=== PATIENT | male | born 1970 | race Caucasian/White ===

== ENCOUNTER 2020-11-15 14:45 | Outpatient (CLI) | payer OTHER, SELFPAY | END 2020-11-15 14:46 | disposition home or self-care (01) | LOC: ANHCOVIDVC 14:45 | PROVIDERS: PCP Internal Medicine | DX: Z23 Encounter for immunization (principal) | CPT/HCPCS: 0001A; 91300 ==

== ENCOUNTER 2020-12-06 14:44 | Outpatient (CLI) | payer OTHER, SELFPAY | END 2020-12-06 14:45 | disposition home or self-care (01) | LOC: ANHCOVIDVC 14:44 | PROVIDERS: PCP Internal Medicine | DX: Z23 Encounter for immunization (principal) | CPT/HCPCS: 0002A; 91300 ==

== ENCOUNTER 2021-04-03 10:39 | Outpatient (CLI) | payer OTHER, MEDICARE, SELFPAY ==
--- NOTE | ~2021-04-03 | CT_ITS ---
EXAMINATION: CT lumbar spine wo [facility] EXAM DATE: 04/03/2021 11:19 INDICATION: M54.16 - Radiculopathy, lumbar region . TECHNIQUE: Spiral CT of the lumbar spine was performed without contrast. Axial, coronal and sagittal images lumbar spine were reviewed. The dose-length product (DLP) for this examination was 1302.71 m Gy-cm. The exposure was tailored according to patient size (auto mA exposure control), and iterativ e reconstruction (ASIR) was used as additional dose reduction technique. Comparison is made to prior examination from 07/06/2018. FINDINGS: There is 3 mm retrolisthesis L3 on L4, L4 on L5 and L5 on S1. Mild to moderate disc disease at L4-5, mild at the other lumbar levels. Congenitally narrow mid lumbar spinal canal. There are no acute fractures identified. Sacrum, sacroiliac joints, sacral arcuate lines are intact. Paraspinal so ft tissue is unremarkable. Level by level evaluation: T11-12: Disc does not extend beyond the endplate margin. Facet arthropathy: Mild. Neural foraminal stenosis: No stenosis. Central canal stenosis: No stenosis. T12-L1: Disc does not extend beyond the endplate margin. Facet arthropathy: None. Neural foraminal stenosis: No stenosis. Central canal stenosis: No stenosis. L1-L2: There is a minimal diffuse disc bulge. Facet arthropathy: None. Neural foraminal stenosis: No stenosis. Central canal stenosis: No stenosis. L2-L3: There is a mild diffuse disc bulge. Facet arthropathy: Mild. Neural foraminal stenosis: Mild right. Central canal stenosis: Mild superimposed on congenital. L3-L4: There is a mild to moderate diffuse disc bulge. Facet arthropathy: Mild to moderate. Neural foraminal stenosis: Mild to moderate bilateral. Central canal stenosis: Moderate to severe superimposed on congenital. L4-L5: There is a mild to moderate diffuse disc bulge. Facet arthropathy: Moderate left, mild to moderate right. Neural foraminal stenosis: Mild to moderate bilateral. Central canal stenosis: Moderate. L5-S1: There is a mild diffuse disc bulge. Facet arthropathy: Mild to moderate bilateral. Neural foraminal stenosis: Severe left, moderate to severe right. Central canal stenosis: Mild. Compared to 2018, slight progression in spondylosis. IMPRESSION: 1. Congenitally narrow mid lumbar spinal canal with moderate to severe stenosis at L3-4. 2. L5-S1 severe left neural foraminal stenosis. 3. Mild to moderate disc disease and arthropathy. Reviewed, dictated and finalized at location B. IMPRESSION: 1. Congenitally narrow mid lumbar spinal canal with moderate to severe stenosi s at L3-4. 2. L5-S1 severe left neural foraminal stenosis. 3. Mild to moderate disc disease and arthropathy.
== END 2021-04-03 10:40 | disposition home or self-care (01) ==
PROVIDERS: PCP Family Medicine; Visit Provider Nurse Practitioner
DX: M54.16 Radiculopathy, lumbar region (principal); M48.061 Spinal stenosis, lumbar region without neurogenic claudication; M51.9 Unspecified thoracic, thoracolumbar and lumbosacral intervertebral disc disorder; M47.816 Spondylosis without myelopathy or radiculopathy, lumbar region
CPT/HCPCS: 72131

== ENCOUNTER 2021-06-03 00:36 | Day surgery (SDC) | payer OTHER, MEDICARE, SELFPAY ==
[2021-05-08 08:49] VITALS: BMI 49.6
--- NOTE | 2021-05-17 18:30 | WPDANESEPPF ---
Anes - Initial Pre Proc Eval Procedure: Operation Date: 05/20/21 12:00 Proposed Procedures p Esophagogastroduodenoscopy - Vaughn Tan MD Date/Time: 05/17/21 18:30 Surgeon: Vaughn Tan MD Pre Op Diagnosis: nausea, epigastric pain Patient Data Age: 51 Gender: M Height: 1.78 m Weight: 156.8 kg Allergies Allergy/AdvReac Type Severity Reaction Status Date / Time adhesive tape Allergy Intermediate BLISTERS Verified 04/26/21 09:10 Home Medications Medication Instructions Recorded Confirmed Type aspirin 81 mg tablet,delayed 81 mg PO DAILY 04/30/20 05/08/21 History release atorvastatin 80 mg tablet 80 mg PO DAILY #90 each 05/15/21 Rx carvedilol 25 mg tablet 25 mg PO BID #180 tablet 05/15/21 Rx furosemide 40 mg tablet 40 mg PO BID #180 tablet 05/15/21 Rx gabapentin 300 mg capsule 900 mg PO TID #270 cap 05/15/21 Rx lisinopril 10 mg tablet 10 mg PO BID #180 tablet 05/15/21 Rx omeprazole 40 mg capsule,delayed 40 mg PO BID #60 cap 05/15/21 Rx release Results Review: All pre-operative results and documents have been reviewed as part of the pre-operative evaluation. [facility] Past Medical History Medical History (Updated 05/17/21 @ 18:31 by Cuauhtemoc Avendano DO) Gant esophagus Chronic kidney disease, stage 3 Dilated cardiomyopathy Essential (primary) hypertension GERD (gastroesophageal reflux disease) History of blood clots ICD (implantable cardioverter-defibrillator) in place Lumbar back pain with radiculopathy affecting lower extremity Neuropathic pain of both legs SHAUNA (obstructive sleep apnea) PAD (peripheral artery disease) Surgical History Surgical History History of vascular surgery Pacemaker Family History Family History Father Diabetes mellitus Acute myocardial infarction Family history of chronic obstructive pulmonary disease Grandparent Acute myocardial infarction Family history of emphysema Social History Social History Smoking status: Never smoker Smoking end date: 08/03/85 Alcohol intake: never Substance use: current Substance use type: marijuana Other substance usage details: a couple times a day. Living arrangements: with family Spiritual care concerns: No Anes - Eval Final PreProcedure Day of Procedure 05/17/21 18:30 Patient weight: morbidly obese Heart: regular rate and rhythm Lungs: clear to auscultation and normal air movement Airway: Mallampati scale class II Neurological: alert and oriented Last oral intake: >/= 8 hours ASA classification: IV Emergent: no Anesthetic plan: proceed Anesthesia type and monitoring: general GIVS and standard monitoring Results Review: All pre-operative results and documents have been reviewed as part of the pre-operative evaluation. Informed Consent: The patient's anesthetic plan and its attendant risks and benefits were discussed with the patient/family/POA. Questions were solicited and answers provided to the satisfaction of the patient/family/POA.
[2021-05-30 08:33] VITALS: BMI 49.3
--- NOTE | 2021-05-31 13:58 | PM.HPGS ---
History of Present Illness History of Present Illness Consent: Risks, benefits, and alternatives have been discussed and questions answered. Patient agrees to proceed with procedure. Chief complaint: nausea, epigastric pain Narrative: this 51-year-old male who was found to have Gant's esophagus when he underwent EGD and dilatation of a stricture 3 years ago. He is now having epigastric pain and a great deal of nausea beginning several weeks ago. He continues to take omeprazole daily. Review of Systems Review of Systems: All systems reviewed & are unremarkable except as noted in HPI and below PMFSH Past Medical History Medical History Gant esophagus Chronic kidney disease, stage 3 Dilated cardiomyopathy Essential (primary) hypertension GERD (gastroesophageal reflux disease) History of blood clots ICD (implantable cardioverter-defibrillator) in place Lumbar back pain with radiculopathy affecting lower extremity Neuropathic pain of both legs SHAUNA (obstructive sleep apnea) PAD (peripheral artery disease) Surgical History Surgical History History of vascular surgery Pacemaker Family History Family History Father Diabetes mellitus Acute myocardial infarction Family history of chronic obstructive pulmonary disease Grandparent Acute myocardial infarction Family history of emphysema Social History Social History Smoking status: Never smoker Smoking end date: 08/03/85 Alcohol intake: former Alcohol use details: used to drink when he was younger Substance use: current Substance use type: marijuana Other substance usage details: a couple times a day. Living arrangements: with family Spiritual care concerns: No Meds Home Medications and Allergies Home Medications Medication Instructions Recorded Confirmed Type aspirin 81 mg tablet,delayed 81 mg PO DAILY 04/30/20 06/03/21 History release atorvastatin 80 mg tablet 80 mg PO DAILY #90 each 05/15/21 06/03/21 Rx carvedilol 25 mg tablet 25 mg PO BID #180 tablet 05/15/21 06/03/21 Rx furosemide 40 mg tablet 40 mg PO BID #180 tablet 05/15/21 06/03/21 Rx gabapentin 300 mg capsule 900 mg PO TID #270 cap 05/15/21 06/03/21 Rx lisinopril 10 mg tablet 10 mg PO BID #180 tablet 05/15/21 06/03/21 Rx omeprazole 40 mg capsule,delayed 40 mg PO BID #60 cap 05/15/21 06/03/21 Rx release Allergies Allergy/AdvReac Type Severity Reaction Status Date / Time adhesive tape Allergy Intermediate BLISTERS Verified 06/03/21 11:01 Exam Const: General: alert Orientation/consciousness: patient oriented x3 Resp: Auscultation: clear to auscultation bilaterally Cardio: Rhythm: regular rhythm GI: GI Palp: Yes Soft to palpation and No Tenderness to palpation present (GI) Neuro: General: patient oriented x3 Assessment and Plan Assessment and plan (1) Epigastric pain: Code(s): R10.13 - Epigastric pain Status: Acute Assessment and Plan: EGD with possible biopsy or dilatation or cautery.
[2021-06-03 11:02] VITALS: BP 149/89; PULSE 82; RESP 22; TEMP 36.1; O2SAT 99; BMI 50.1
[2021-06-03] MEDS: LACTATED RINGERS 1,000 ML 150 ML IV CONT (11:04)
--- NOTE | 2021-06-03 11:33 | WPDANESEPPF ---
Anes - Initial Pre Proc Eval Procedure: Operation Date: 06/03/21 12:30 Proposed Procedures p Esophagogastroduodenoscopy - Vaughn Tan MD Date/Time: 06/03/21 11:33 Surgeon: Vaughn Tan MD Pre Op Diagnosis: nausea, epigastric pain Patient Data Age: 51 Gender: M Height: 1.78 m Weight: 158.5 kg Last Vital Signs Temp 36.1 C L 06/03/21 11:02 Pulse 82 06/03/21 11:02 Resp 22 H 06/03/21 11:02 BP 149/89 H 06/03/21 11:02 Pulse Ox 99 06/03/21 11:02 Allergies Allergy/AdvReac Type Severity Reaction Status Date / Time adhesive tape Allergy Intermediate BLISTERS Verified 06/03/21 11:01 Home Medications Medication Instructions Recorded Confirmed Type aspirin 81 mg tablet,delayed 81 mg PO DAILY 04/30/20 06/03/21 History release atorvastatin 80 mg tablet 80 mg PO DAILY #90 each 05/15/21 06/03/21 Rx carvedilol 25 mg tablet 25 mg PO BID #180 tablet 05/15/21 06/03/21 Rx furosemide 40 mg tablet 40 mg PO BID #180 tablet 05/15/21 06/03/21 Rx gabapentin 300 mg capsule 900 mg PO TID #270 cap 05/15/21 06/03/21 Rx lisinopril 10 mg tablet 10 mg PO BID #180 tablet 05/15/21 06/03/21 Rx omeprazole 40 mg capsule,delayed 40 mg PO BID #60 cap 05/15/21 06/03/21 Rx release Patient hx anesthesia problems: none Family hx anesthesia problems: none Results Review: All pre-operative results and documents have been reviewed as part of the pre-operative evaluation. [facility] Past Medical History Medical History Gant esophagus Chronic kidney disease, stage 3 Dilated cardiomyopathy Essential (primary) hypertension GERD (gastroesophageal reflux disease) History of blood clots ICD (implantable cardioverter-defibrillator) in place Lumbar back pain with radiculopathy affecting lower extremity Neuropathic pain of both legs SHAUNA (obstructive sleep apnea) PAD (peripheral artery disease) Surgical History Surgical History History of vascular surgery Pacemaker Family History Family History Father Diabetes mellitus Acute myocardial infarction Family history of chronic obstructive pulmonary disease Grandparent Acute myocardial infarction Family history of emphysema Social History Social History Smoking status: Never smoker Smoking end date: 08/03/85 Alcohol intake: former Alcohol use details: used to drink when he was younger Substance use: current Substance use type: marijuana Other substance usage details: a couple times a day. Living arrangements: with family Spiritual care concerns: No Anes - Eval Final PreProcedure Day of Procedure 06/03/21 11:33 Patient weight: super morbidly obese Heart: regular rate and rhythm Lungs: clear to auscultation Airway: Mallampati scale class II Neurological: alert and oriented Last oral intake: >/= 8 hours ASA classification: III Emergent: no Anesthetic plan: proceed Anesthesia type and monitoring: general GIVS and standard monitoring Results Review: All pre-operative results and documents have been reviewed as part of the pre-operative evaluation. Informed Consent: The patient's anesthetic plan and its attendant risks and benefits were discussed with the patient/family/POA. Questions were solicited and answers provided to the satisfaction of the patient/family/POA.
[2021-06-03] MEDS: BENZOCAINE (*SP) 60 ML SPRAY CAN (HURRICAINE) 1 SPRAY MUCOUS MEM (11:42)
[2021-06-03] MEDS: SIMETHICONE ORAL SUSPENSION 20 MG/0.3 ML 30 ML BOTTLE 0.6 ML IRRIGATION (11:51)
[2021-06-03 11:54] VITALS: BP 139/64; PULSE 75; RESP 22; O2SAT 97
[2021-06-03 12:04] VITALS: BP 129/65; PULSE 70; RESP 16; O2SAT 100
[2021-06-03 12:14] VITALS: BP 136/82; PULSE 65; RESP 18; O2SAT 97
== END 2021-06-03 12:21 | disposition home or self-care (01) ==
PROVIDERS: PCP Family Medicine; Visit Provider Internal Medicine Gastroenterology
PROC: 0DJ08ZZ Inspection of Upper Intestinal Tract, Via Natural or Artificial Opening Endoscopic (ICD-10-PCS; CPT 43235; principal; 2021-06-03 12:30)
DX: R11.2 Nausea with vomiting, unspecified (principal); R10.13 Epigastric pain; K22.70 Barrett's esophagus without dysplasia; K20.90 Esophagitis, unspecified without bleeding; K44.9 Diaphragmatic hernia without obstruction or gangrene; Z79.82 Long term (current) use of aspirin; G47.33 Obstructive sleep apnea (adult) (pediatric); I13.10 Hypertensive heart and chronic kidney disease without heart failure, with stage 1 through stage 4 chronic kidney disease, or unspecified chronic kidney disease; I43 Cardiomyopathy in diseases classified elsewhere; N18.30 Chronic kidney disease, stage 3 unspecified; Z95.810 Presence of automatic (implantable) cardiac defibrillator; I73.9 Peripheral vascular disease, unspecified; Z87.891 Personal history of nicotine dependence; F12.90 Cannabis use, unspecified, uncomplicated; E66.01 Morbid (severe) obesity due to excess calories; Z68.43 Body mass index [BMI] 50.0-59.9, adult
CPT/HCPCS: 43239; 88305; 88313; J2704; J7120

== ENCOUNTER 2021-06-21 09:08 | Outpatient (CLI) | payer OTHER, MEDICARE, SELFPAY ==
--- NOTE | ~2021-06-21 | US_ITS ---
EXAMINATION: US abdomen complete DATE: 06/21/2021 09:53 INDICATION: Epigastric abdominal pain. TECHNIQUE: Multiple grayscale and Doppler ultrasound images of the abdomen were obtained. COMPARISON: Lumbar spine CT 04/03/2021 FINDINGS: The visualized portions of the head, body, and tail of the pancreas are normal. The liver i s normal without focal lesion. There is normal flow in main portal vein. The gallbladder is normal in size and contains sludge. No gallstones or gallbladder wall thickening. There was no sonographic Mur phy sign. The common duct is normal and measures 6 mm. The kidneys are normal in size. There is a 1.4 cm hypoechoic exophytic mass of right kidney. The spleen is normal in size. The visualized portion o f abdominal aorta is normal in caliber. The inferior vena cava is not well visualized. IMPRESSION: 1. Gallbladder sludge. No evidence of acute cholecystitis. 2. 1.4 cm in right kidney mass, which may be a cyst or less likely a neoplasm. Abdomen CT without and with contrast is recommended. Reviewed, dictated and finalized at location A. [employer]
== END 2021-06-21 09:09 | disposition home or self-care (01) ==
LOC: ANHIMG 09:15
PROVIDERS: PCP Family Medicine; Visit Provider Internal Medicine Gastroenterology
DX: R10.13 Epigastric pain (principal); K83.9 Disease of biliary tract, unspecified; N28.89 Other specified disorders of kidney and ureter
CPT/HCPCS: 76700

== ENCOUNTER 2021-08-30 07:42 | Outpatient (CLI) | payer OTHER, MEDICARE, SELFPAY ==
--- NOTE | ~2021-08-30 | CT_ITS ---
EXAMINATION: CT abdomen wo/w con EXAM DATE: 08/30/2021 08:14 INDICATION: R10.13 - Epigastric pain. Abnormal ultrasound, right kidney lesion. TECHNIQUE: Spiral CT of the abdomen was performed without and then with intravenous injection of 100 mL Omnipaque 350. Axial, coronal and sagittal images of the abdomen were reviewed. The dose-length product (DLP) for this examination was 1984.19 mGy-cm. The exposure was tailored according to patie nt size (auto mA exposure control), and iterative reconstruction (ASIR) was used as additional dose r eduction technique. There is no prior study for comparison. FINDINGS: There is a 1.5 cm right renal cyst at the midpole corresponding to the ultrasound abnormali ty. No solid or suspicious renal mass. No hydronephrosis. The liver, spleen, adrenal glands and panc reas are unremarkable. Gallbladder is unremarkable. No biliary obstruction. There is no retroperi toneal lymphadenopathy. Small umbilical fat-containing hernia. The appendix is normal. The stomach and small bowel are unremarkable. There is expected amount of c olonic stool. No free intraperitoneal gas. The heart is normal in size. There are no pericardial or pleural effusions. Cardiac pacemaker/AICD leads. The lung bases are unremarkable. There are no o steoblastic or osteolytic lesions identified. IMPRESSION: Small right renal cyst. No suspicious findings. Reviewed, dictated and finalized at location A. [employer]
[2021-08-30 08:03] LABS: Estimated Glomerular Filt Rate > 60
== END 2021-08-30 07:43 | disposition home or self-care (01) ==
LOC: ANHIMG 07:46
PROVIDERS: PCP Family Medicine; Visit Provider Internal Medicine Gastroenterology
DX: R10.13 Epigastric pain (principal)
CPT/HCPCS: 74170; Q9967

== ENCOUNTER 2021-09-11 00:48 | Day surgery (SDC) | payer OTHER, MEDICARE, SELFPAY ==
[2021-08-29 13:33] VITALS: BMI 50.3
--- NOTE | 2021-09-10 16:40 | PM.HPGS ---
History of Present Illness History of Present Illness Consent: Risks, benefits, and alternatives have been discussed and questions answered. Patient agrees to proceed with procedure. Chief complaint: neoplasm screening Narrative: Vega Pinedo Jr. is a 51 year old male referred for Colon cancer screening Review of Systems Review of Systems: All systems reviewed & are unremarkable except as noted in HPI and below PMFSH Past Medical History Medical History Gant esophagus Chronic kidney disease, stage 3 Dilated cardiomyopathy Essential (primary) hypertension GERD (gastroesophageal reflux disease) History of blood clots ICD (implantable cardioverter-defibrillator) in place Lumbar back pain with radiculopathy affecting lower extremity Neuropathic pain of both legs SHAUNA (obstructive sleep apnea) PAD (peripheral artery disease) Surgical History Surgical History History of vascular surgery Pacemaker Family History Family History Father Diabetes mellitus Acute myocardial infarction Family history of chronic obstructive pulmonary disease Grandparent Acute myocardial infarction Family history of emphysema Social History Social History Smoking status: Never smoker Smoking end date: 08/03/85 Alcohol intake: never Alcohol use details: used to drink when he was younger Substance use: current Substance use type: marijuana Other substance usage details: Daily Living arrangements: with family Spiritual care concerns: No Meds Home Medications and Allergies Home Medications Medication Instructions Recorded Confirmed Type aspirin 81 mg tablet,delayed 81 mg PO DAILY 04/30/20 09/11/21 History release atorvastatin 80 mg tablet 80 mg PO DAILY #90 each 05/15/21 09/11/21 Rx carvedilol 25 mg tablet 25 mg PO BID #180 tablet 05/15/21 09/11/21 Rx lisinopril 10 mg tablet 10 mg PO BID #180 tablet 05/15/21 09/11/21 Rx gabapentin 300 mg capsule 900 mg PO TID #270 cap 07/01/21 09/11/21 Rx furosemide 40 mg tablet 40 mg PO BID #180 tablet 07/22/21 09/11/21 Rx albuterol sulfate 90 mcg/actuation 1 puff INHALATION Q4H PRN #6.7 g 08/16/21 09/11/21 Rx aerosol inhaler omeprazole 40 mg PO DAILY 08/29/21 09/11/21 History Allergies Allergy/AdvReac Type Severity Reaction Status Date / Time adhesive tape Allergy Intermediate BLISTERS Verified 09/11/21 08:47 Exam Resp: Auscultation: clear to auscultation bilaterally Cardio: Rate: regular rate Rhythm: regular rhythm GI: GI Palp: Yes Soft to palpation and No Tenderness to palpation present (GI) Assessment and Plan Assessment and plan (1) Colon cancer screening: Code(s): Z12.11 - Encounter for screening for malignant neoplasm of colon Status: Acute Assessment and Plan: Colonoscopy with possible biopsy or polypectomy or cautery or injection of substances.
[2021-09-11 08:48] VITALS: BP 137/87; PULSE 75; RESP 20; TEMP 36.6; O2SAT 98
[2021-09-11] MEDS: LACTATED RINGERS 1,000 ML 150 ML IV CONT (08:56)
--- NOTE | 2021-09-11 10:03 | WPDANESEPPF ---
Anes - Initial Pre Proc Eval Procedure: Operation Date: 09/11/21 10:00 Proposed Procedures p Screening Colonoscopy - Vaughn Tan MD Date/Time: 09/11/21 10:03 Surgeon: Vaughn Tan MD Pre Op Diagnosis: neoplasm screening Patient Data Age: 51 Gender: M Height: 1.78 m Weight: 156 kg Last Vital Signs Temp 98 F 09/11/21 08:48 Pulse 75 09/11/21 08:48 Resp 20 09/11/21 08:48 BP 137/87 09/11/21 08:48 Pulse Ox 98 09/11/21 08:48 Allergies Allergy/AdvReac Type Severity Reaction Status Date / Time adhesive tape Allergy Intermediate BLISTERS Verified 09/11/21 08:47 Home Medications Medication Instructions Recorded Confirmed Type aspirin 81 mg tablet,delayed 81 mg PO DAILY 04/30/20 09/11/21 History release atorvastatin 80 mg tablet 80 mg PO DAILY #90 each 05/15/21 09/11/21 Rx carvedilol 25 mg tablet 25 mg PO BID #180 tablet 05/15/21 09/11/21 Rx lisinopril 10 mg tablet 10 mg PO BID #180 tablet 05/15/21 09/11/21 Rx gabapentin 300 mg capsule 900 mg PO TID #270 cap 07/01/21 09/11/21 Rx furosemide 40 mg tablet 40 mg PO BID #180 tablet 07/22/21 09/11/21 Rx albuterol sulfate 90 mcg/actuation 1 puff INHALATION Q4H PRN #6.7 g 08/16/21 09/11/21 Rx aerosol inhaler omeprazole 40 mg PO DAILY 08/29/21 09/11/21 History Patient hx anesthesia problems: none Family hx anesthesia problems: none Results Review: All pre-operative results and documents have been reviewed as part of the pre-operative evaluation. [facility] Past Medical History Medical History Gant esophagus Chronic kidney disease, stage 3 Dilated cardiomyopathy Essential (primary) hypertension GERD (gastroesophageal reflux disease) History of blood clots ICD (implantable cardioverter-defibrillator) in place Lumbar back pain with radiculopathy affecting lower extremity Neuropathic pain of both legs SHAUNA (obstructive sleep apnea) PAD (peripheral artery disease) Surgical History Surgical History History of vascular surgery Pacemaker Family History Family History Father Diabetes mellitus Acute myocardial infarction Family history of chronic obstructive pulmonary disease Grandparent Acute myocardial infarction Family history of emphysema Social History Social History Smoking status: Never smoker Smoking end date: 08/03/85 Alcohol intake: never Alcohol use details: used to drink when he was younger Substance use: current Substance use type: marijuana Other substance usage details: Daily Living arrangements: with family Spiritual care concerns: No Anes - Eval Final PreProcedure Day of Procedure 09/11/21 10:03 Patient weight: super morbidly obese Heart: regular rate and rhythm Lungs: clear to auscultation Airway: Mallampati scale class III Neurological: alert and oriented Last oral intake: >/= 8 hours ASA classification: IV Emergent: no Anesthetic plan: proceed Anesthesia type and monitoring: general GIVS and standard monitoring Results Review: All pre-operative results and documents have been reviewed as part of the pre-operative evaluation. Informed Consent: The patient's anesthetic plan and its attendant risks and benefits were discussed with the patient/family/POA. Questions were solicited and answers provided to the satisfaction of the patient/family/POA.
[2021-09-11 10:23] VITALS: BP 100/60; PULSE 72; RESP 15; O2SAT 97
[2021-09-11 10:33] VITALS: BP 113/68; PULSE 68; RESP 17; O2SAT 97
[2021-09-11 10:43] VITALS: BP 112/64; PULSE 65; RESP 22; O2SAT 99
== END 2021-09-11 10:45 | disposition home or self-care (01) ==
PROVIDERS: PCP Family Medicine; Visit Provider Internal Medicine Gastroenterology
PROC: 0DJD8ZZ Inspection of Lower Intestinal Tract, Via Natural or Artificial Opening Endoscopic (ICD-10-PCS; CPT 45378; principal; 2021-09-11 10:00)
DX: Z12.11 Encounter for screening for malignant neoplasm of colon (principal); D12.5 Benign neoplasm of sigmoid colon; I42.0 Dilated cardiomyopathy; I12.9 Hypertensive chronic kidney disease with stage 1 through stage 4 chronic kidney disease, or unspecified chronic kidney disease; N18.30 Chronic kidney disease, stage 3 unspecified; K21.9 Gastro-esophageal reflux disease without esophagitis; G47.33 Obstructive sleep apnea (adult) (pediatric); I73.9 Peripheral vascular disease, unspecified; G62.9 Polyneuropathy, unspecified; F12.90 Cannabis use, unspecified, uncomplicated; Z95.810 Presence of automatic (implantable) cardiac defibrillator; Z79.51 Long term (current) use of inhaled steroids; Z79.82 Long term (current) use of aspirin; E66.01 Morbid (severe) obesity due to excess calories; Z68.42 Body mass index [BMI] 45.0-49.9, adult
CPT/HCPCS: 45385; 88305; J2704; J7120

== ENCOUNTER 2021-09-12 22:33 | Emergency (ER) | payer OTHER, MEDICARE, SELFPAY ==
[2021-09-12 22:36] VITALS: BP 146/92; PULSE 74; RESP 20; TEMP 36.1; O2SAT 98
--- NOTE | 2021-09-12 23:12 | ED.ANIMALBIT ---
HPI - Animal Bite General Chief Complaint: Animal Bite Stated Complaint: attack by a dog Time Seen by Provider: 09/12/21 23:11 Source: patient Mode of arrival: ambulatory Limitations: no limitations History of Present Illness HPI narrative: Patient is a 51-year-old male complaining of a dog bite on his left face, left arm, right arm, after being bitten by his own dog which is a pitbull. Patient states that he was trying to shoo the dog out of the bed so he could sleep and that is when his dog attacked him. Patient states that he has had the dog for about a year. Dog's immunization status is up-to-date. Patient denies any other pain or injury. Related Data Home Medications Medication Instructions Recorded Confirmed aspirin 81 mg tablet,delayed 81 mg PO DAILY 04/30/20 09/11/21 release omeprazole 40 mg PO DAILY 08/29/21 09/11/21 Allergies Allergy/AdvReac Type Severity Reaction Status Date / Time adhesive tape Allergy Intermediate BLISTERS Verified 09/11/21 08:47 Review of Systems Review of Systems: All systems reviewed & are unremarkable except as noted in HPI and below Constitutional: Constitutional: Denies body ache(s), Denies chills, Denies excessive sweating, Denies fatigue, Denies fever(s), Denies headache(s), Denies lethargy, Denies malaise, Denies weakness and Denies weight loss Eyes: Eyes: Denies blurry vision, Denies change in vision and Denies loss of vision ENT: Denies dizziness, Denies ear discharge, Denies headache(s), Denies lip swelling, Denies epistaxis, Denies nasal congestion, Denies neck pain, Denies throat swelling and Denies tongue swelling Cardiovascular: Cardiovascular: Denies chest pain, Denies chest pain at rest, Denies chest pain with activity, Denies diaphoresis, Denies rapid heart rate, Denies edema, Denies irregular heart rhythm, Denies lightheadedness, Denies palpitations, Denies dyspnea and Denies dyspnea on exertion Respiratory: Respiratory: Denies chest congestion, Denies cough, Denies hemoptysis, Denies dyspnea and Denies dyspnea on exertion Gastrointestinal: Gastrointestinal: Denies abdominal pain, Denies melena, Denies hematochezia, Denies diarrhea, Denies nausea, Denies vomiting and Denies hematemesis Musculoskeletal: Musculoskeletal: Denies abnormal gait, Denies deformity, Denies joint swelling, Denies limited range of motion, Denies neck pain and Denies numbness Neurologic: Denies Abnormal speech present, Denies abnormal gait, Denies confusion, Denies dizziness, Denies headache(s), Denies focal weakness, Denies loss of vision, Denies numbness, Denies Other visual disturbances, Denies Sensory deficit (Neuro) and Denies weakness Psychiatric: Psychiatric: Denies confusion, Denies depression, Denies auditory hallucinations, Denies homicidal ideation and Denies suicidal ideation Endocrine: Endocrine: Denies cold intolerance, Denies excessive sweating, Denies fatigue, Denies heat intolerance and Denies palpitations Hematologic/Lymphatic: Hematologic/Lymphatic: Denies easy bleeding and Denies easy bruising Allergic/Immunologic: Allergic/Immunologic: Denies lip swelling, Denies throat swelling and Denies tongue swelling PMFSH Past Medical History Medical History Gant esophagus Chronic kidney disease, stage 3 Dilated cardiomyopathy Essential (primary) hypertension GERD (gastroesophageal reflux disease) History of blood clots ICD (implantable cardioverter-defibrillator) in place Lumbar back pain with radiculopathy affecting lower extremity Neuropathic pain of both legs SHAUNA (obstructive sleep apnea) PAD (peripheral artery disease) Surgical History Surgical History History of vascular surgery Pacemaker Family History Family History Father Diabetes mellitus Acute myocardial infarction Family history of chronic obst
[2021-09-12] MEDS: TETANUS,DIPHTHERIA,AC PERTUSSIS ADULT (0.5 ML) BOOSTRIX IM (23:53)
[2021-09-13] MEDS: HYDROcodone/acetaminophen (*CRX) 5-325 MG TABLET 1 TAB PO (01:03)
== END 2021-09-13 01:05 | disposition home or self-care (01) ==
PROVIDERS: Emergency Provider Emergency Medicine; PCP Family Medicine
DX: S01.81XA Laceration without foreign body of other part of head, initial encounter (principal); S41.111A Laceration without foreign body of right upper arm, initial encounter; S41.112A Laceration without foreign body of left upper arm, initial encounter; S51.812A Laceration without foreign body of left forearm, initial encounter; W54.0XXA Bitten by dog, initial encounter; Z23 Encounter for immunization; I12.9 Hypertensive chronic kidney disease with stage 1 through stage 4 chronic kidney disease, or unspecified chronic kidney disease; N18.9 Chronic kidney disease, unspecified; K21.9 Gastro-esophageal reflux disease without esophagitis; G47.30 Sleep apnea, unspecified
CPT/HCPCS: 12004; 12013; 90471; 90715; 99283; A9270

== ENCOUNTER 2021-09-23 08:09 | Outpatient (CLI) | payer OTHER, MEDICARE, SELFPAY ==
--- NOTE | ~2021-09-23 | NM_ITS ---
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 TECHNIQUE: 4.7 mCi Tc-99m mebrofenin (Choletec) was administered intravenously. Scintigraphic images of the abdomen were obtained for one hour. At the 1 hour time point, the patient drank 8 oz Ensure, and imaging was continued for 60 minutes. Gallbladder ejection fraction was calculated by the technol ogist. FINDINGS: There is normal clearance of radiotracer from the blood pool. There is homogeneous tracer u ptake by the liver. Activity progresses to the bowel and gallbladder. The gallbladder ejection fract ion is 49%. Note that with this technique, normal GBEF >= 33%. IMPRESSION: 1. Normal hepatobiliary scan. Reviewed, dictated and finalized at location B. TER OPERATOR
== END 2021-09-23 08:10 | disposition home or self-care (01) ==
LOC: ANHIMG 08:12
PROVIDERS: PCP Family Medicine; Visit Provider Internal Medicine Gastroenterology
DX: R10.13 Epigastric pain (principal)
CPT/HCPCS: 78226; A9537

== ENCOUNTER 2021-10-23 07:24 | Outpatient (RCR) | payer OTHER, MEDICARE, SELFPAY ==
[2021-10-01 10:00] VITALS: BMI 49.6
== END 2021-12-16 09:04 | disposition home or self-care (01) ==
LOC: ANHWOC 07:24
PROVIDERS: PCP Family Medicine; Visit Provider Nurse Practitioner
DX: S41.131D Puncture wound without foreign body of right upper arm, subsequent encounter (principal); W54.0XXA Bitten by dog, initial encounter
CPT/HCPCS: 99212; 99213; G0463

== ENCOUNTER 2021-10-31 13:53 | Outpatient (CLI) | payer OTHER, MEDICARE, SELFPAY ==
--- NOTE | 2021-11-11 11:49 | WPDSLEEPSTUD ---
Sleep Study Date of Study: 10/31/21 Ordering Provider: Timur Lovett MD Interpreting Physician: Shelbi Gonzalez MD Sleep Study Type: Split Polysomnogram Height: 1.78 m Weight: 151.953 kg Body Mass Index: 48.0 Neck Circumference (inches): 22 [place]: 13 Reason for Sleep Study Hypersomnolence; obstructive sleep apnea; cardiomyopathy * 07/02/2018; BiPAP titration, optimal pressure 16/11, residual AHI was 7.8, minimum saturation 88%, REM was present and his sleep efficiency was 86% * 04/13/2018; CPAP titration; no optimal pressure; he needed to return for BiPAP titration. * 05/27/2015 - Sleep study; no data could be located. He was already on CPAP at the time, so this was likely a CPAP titration. He was later on APAP. * 03/06/2015; echocardiogram in our system from [facility]. Technically difficult study due to body habitus weight of 315 lb. LVEF is 30-35%. LVH. Sleep History Vega Pinedo is a 51 year old man with obstructive sleep apnea. He has both a CPAP machine and a BiPAP machine at home. Although he was diagnosed with obstructive sleep apnea before 2014, he has not worn either one of his PAP machines after his last titration July 02, 2018 with an optimal BPAP of 16/11. The patient says that this was not comfortable and he never used his BiPAP device. He has significant medical co-morbidities including cardiomyopathy, neuropathy, hypertension, GERD, ICD and peripheral arterial disease. He frequently awakens from sleep feeling short of breath. He occasionally awakens at night with heartburn, belching or coughing. He frequently snores only rarely is it loud enough that others complain about it. He frequently has trouble falling asleep with a cold. He occasionally wakes up gasping for breath at night. He constantly has breathing problems at night observed by others. He occasionally sweats excessively at night and notices his heart beating irregularly at night. He frequently falls asleep during the day, occasionally involuntarily, but never while driving. He does not have loss of muscle tone with strong emotion. He does not have daytime difficulties due to excessive sleepiness. He does not feel paralyzed on waking or falling asleep. He rarely has vivid dreamlike scenes upon awakening or falling asleep. He occasionally feels afraid to go to sleep. He does not have nightmares. He does not remember his dreams. He frequently has racing thoughts. Frequently feels sad, depressed or anxious. He frequently has muscular tension. He frequently notices parts of his body jerking. He occasionally kicks at night. He always has crawling and aching feelings in his legs as well as leg pain during the night. He has a history of neuropathy and vascular disease with arterial bypasses in both legs. He does not have morning jaw pain. He frequently grinds his teeth during sleep. He constantly is bothered by pain during the day. He frequently is awakened by pain during the night. He constantly wakes up feeling stiff in the morning, frequently wakes up with sore or achy muscles and pain in the neck and spine. He takes antacids regularly. He has fatigue, memory problems, concentration difficulties and insomnia. He reports a 40 lb weight gain in the last year. Normal bedtime is 12 midnight, taking several hours to fall asleep, typically waking 4-5 times at night to go to the bathroom get a drink and sometimes watch television. He wakes in the morning around 10:00 a.m.. His weekend schedule is the same. He estimates getting 4-5 hours of sleep nightly. He takes naps in the afternoon or evening. A short nap of 10 or 15 minutes is not refreshing. He is usually drowsy after waking for 1 hour or longer. He feels better in the evening compared to other times of day. Habits: Never smoked tobacco. No caffeine, alcohol. He does use recreational drugs. [facility] Past Medical History Medical History (Reviewed 11/11/21 @
[2021-11-11 14:28] VITALS: BMI 48.0
== END 2021-11-01 06:46 | disposition home or self-care (01) ==
LOC: ANHCSM 13:55
PROVIDERS: PCP Family Medicine; Visit Provider Internal Medicine Pulmonary Disease
DX: G47.10 Hypersomnia, unspecified (principal); G47.33 Obstructive sleep apnea (adult) (pediatric); G47.39 Other sleep apnea
CPT/HCPCS: 95811

== ENCOUNTER 2021-11-07 09:49 | Outpatient (CLI) | payer OTHER, MEDICARE, SELFPAY ==
--- NOTE | ~2021-11-07 | CT_ITS ---
EXAMINATION: CT diagnostic chest wo con EXAM DATE: 11/07/2021 10:04 INDICATION: Dyspnea. TECHNIQUE: Spiral CT of the chest without contrast. Axial, coronal and sagittal images of the chest were reviewed. Coronal maximum intensity pixel images of chest reviewed. The dose-length product ( DLP) for this examination was 1204.52 mGy-cm. The exposure was tailored according to patient size (a uto mA exposure control), and iterative reconstruction (ASIR) was used as additional dose reduction t echnique. There is no prior study for comparison. FINDINGS: The lungs are clear. There are no pleural or pericardial effusions. Tracheobronchial t ree is patent. There is no mediastinal, hilar or axillary lymphadenopathy. There is no pneumothor ax. Heart normal in size. There is mild coronary arterial calcification, arterial sclerosis. Pace maker/AICD device. Upper abdomen is unremarkable. There is thoracic spondylosis without osteoblast ic or osteolytic lesions identified. IMPRESSION: 1. Unremarkable CT chest exam. Reviewed, dictated and finalized at location A.
[2021-11-07 10:30] VITALS: PULSE 82; O2SAT 96
[2021-11-07 10:35] VITALS: PULSE 99; O2SAT 94
[2021-11-07 10:45] VITALS: PULSE 89; O2SAT 97
--- NOTE | 2021-11-07 11:20 | HOMEO2EVAL ---
Evaluation was performed at [facility] Home Oxygen Evaluation RC: Home Oxygen (O2) Evaluation Start: 11/07/21 11:18 Freq: Status: Active Protocol: RPE Activity Type Activity Date Activity User E-Sign Co-Sign Detail Recorded Client Recorded Date Recorded By Document 11/07/21 10:30 DJO [id number] 11/07/21 11:20 DJO Document 11/07/21 10:35 [email or web address] [id number] 11/07/21 11:20 DJO Document 11/07/21 10:45 [email or web address] [email or web address] 11/07/21 11:20 DJO 11/07/21 11/07/21 11/07/21 10:30 10:35 10:45 Home O2 Evaluation Test Phase Resting Exercise Resting Oxygen Delivery Room Air Room Air Room Air Pulse Oximetry (90-100 %) 96 94 97 Pulse Rate (60-100 beats/min) 82 99 89 Ambulation Distance (feet) 700 Ambulation Distance (meters) 213.34 Home Oxygen Evaluation Comments NO HOME O2 NEEDS Treatment Charges O2 Evaluation - Outpatient
--- NOTE | 2021-11-07 12:03 | WPDPFTINT ---
PFT Procedure Performed PFT Procedure Performed Spirometry with Pre/Post Bronchodilator Plethysmography (Lung Vol) Diffusing Cap (DLCO) Flow Vol Loop PFT Interpretation This is a pulmonary function test with pre and post-bronchodilator spirometry, plethysmography and diffusing capacity. The test was performed and results interpreted in accordance with the 2019 and 2005 ATS/ERS Task Force guidelines respectively using the Global Lung Function Initiative-2012 reference equations. Patient demonstrated good effort and cooperation. Reproducibility criteria were met. The quality of the pre bronchodilator spirometry maneuver was Grade A and post bronchodilator spirometry maneuver was Grade A. Findings: Spirometry:The contour the inspiratory and expiratory flow tracing are normal. The pre bronchodilator FVC is 4.02 L, 82% predicted. The pre bronchodilator FEV1 is 3.15 L, 82% predicted. The pre bronchodilator FEV1: FVC ratio 78%. The post bronchodilator FVC is 4.29 L, representing a 7% increase. The post bronchodilator FEV1 is 3.27 L, representing a 4% increase. The post bronchodilator FEV1: FVC ratio is 76%. Plethysmography: The total lung capacity is 5.06 L, 72% predicted. The functional residual capacity is 1.78 L, 49% predicted. The residual volume is 0.88 L, 42% predicted. Diffusing capacity: Diffusing capacity unadjusted for hemoglobin and carboxyhemoglobin is 26.1, 87% predicted. The diffusing capacity adjusted for alveolar volume is 4.99, 112% predicted. Impression: There is a mild restrictive ventilatory abnormality with a normal FEV1. The spirometry is normal without evidence of an obstructive abnormality. There is no significant improvement after inhaling a single dose of albuterol. The diffusing capacity is normal. There are no prior studies for comparison
== END 2021-11-07 09:50 | disposition home or self-care (01) ==
LOC: ANHIMG 09:51
PROVIDERS: PCP Family Medicine; Visit Provider Internal Medicine Pulmonary Disease
DX: R06.00 Dyspnea, unspecified (principal)
CPT/HCPCS: 71250; 94060; 94618; 94726; 94729

== ENCOUNTER 2022-01-09 08:03 | Outpatient (CLI) | payer OTHER, MEDICARE, SELFPAY ==
--- NOTE | 2022-01-30 11:29 | WPDSLEEPSTUD ---
Sleep Study Date of Study: 01/09/22 Ordering Provider: Timur Lovett MD Interpreting Physician: Shelbi Gonzalez MD Sleep Study Type: ASV Height: 1.78 m Weight: 154.221 kg Body Mass Index: 48.7 Neck Circumference (inches): 22 [place]: 13 Reason for Sleep Study Hypersomnolence; obstructive sleep apnea; cardiomyopathy; patient presents for ASV titration due to treatment emergent central apneas during split night study 10/31/2021 * 10/31/2021 split night study with severe obstructive sleep apnea, AHI 102.2, with multiple deep and sustained desaturation to a sarwat of 74%, and loud snoring; treatment emergent centrals during the titration * ? 07/02/2018;? BiPAP titration, optimal pressure 16/11, residual AHI was 7.8, minimum saturation 88%, REM was present and his sleep efficiency was 86% * ? 04/13/2018; CPAP titration; no optimal pressure; he needed to return for BiPAP titration. * ? 05/27/2015 - Sleep study; no data could be located. He was already on CPAP at the time, so this was likely a CPAP titration. He was later on APAP. * ? 03/06/2015; echocardiogram in our system from [facility]. Technically difficult study due to body habitus weight of 315 lb. LVEF is 30-35%. LVH. Sleep History Vega Pinedo is a 51 year old man with obstructive sleep apnea.? He has both a CPAP machine and a BiPAP machine at home.? ?Although he was diagnosed with obstructive sleep apnea before 2014, he has not worn either one of his PAP machines after his titration July 02, 2018 with an optimal BPAP of 16/11.? The patient says that this was not comfortable and he never used his BiPAP device. ? He has significant medical co-morbidities including cardiomyopathy, neuropathy,? hypertension, GERD, ICD and peripheral arterial disease.? He frequently awakens from sleep feeling short of breath.? He occasionally awakens at night with heartburn, belching or coughing.? He frequently snores only rarely is it loud enough that others complain about it.? He frequently has trouble falling asleep with a cold.? He occasionally wakes up gasping for breath at night.? He constantly has breathing problems at night observed by others.? He occasionally sweats excessively at night and notices his heart beating irregularly at night.? He frequently falls asleep during the day, occasionally involuntarily, but never while driving.? He does not have loss of muscle tone with strong emotion.? He does not have daytime difficulties due to excessive sleepiness.? He does not feel paralyzed on waking or falling asleep.? He rarely has vivid dreamlike scenes upon awakening or falling asleep.? He occasionally feels afraid to go to sleep.? He does not have nightmares.? He does not remember his dreams.? He frequently has racing thoughts.? Frequently feels sad, depressed or anxious.? He frequently has muscular tension.? He frequently notices parts of his body jerking.? He occasionally kicks at night.? He? always has crawling and aching feelings in his legs as well as leg pain during the night. He has a history of neuropathy and vascular disease with? arterial bypasses in both legs. ? He does not have morning jaw pain. ? He frequently grinds his teeth during sleep.? He constantly is bothered by pain during the day.? He frequently is awakened by pain during the night.? He constantly wakes up feeling stiff in the morning, frequently wakes up with sore or achy muscles and pain in the neck and spine.? He takes antacids regularly.? He has fatigue, memory problems, concentration difficulties and insomnia. ? He reports a 40 lb weight gain in the last year. Normal bedtime is 12 midnight, taking several hours to fall asleep, typically waking 4-5 times at night to go to the bathroom get a drink and sometimes watch television.? He wakes in the morning around 10:00 a.m..? His weekend schedule is the same.? He estimates getting 4-5 hours of sleep nightly.? He takes naps in the afternoon or evening.? A short nap of 10 or 15 minut
[2022-01-30 11:58] VITALS: BMI 48.7
== END 2022-01-10 06:26 | disposition home or self-care (01) ==
LOC: ANHCSM 08:04
PROVIDERS: PCP Family Medicine; Visit Provider Internal Medicine Pulmonary Disease
DX: G47.33 Obstructive sleep apnea (adult) (pediatric) (principal)
CPT/HCPCS: 95811

== ENCOUNTER 2022-01-14 15:01 | Emergency (ER) | payer OTHER, MEDICARE, SELFPAY ==
--- NOTE | ~2022-01-14 | XR_ITS ---
EXAMINATION: [id number] DATE: 01/14/2022 15:36 INDICATION: Right rib pain after cough. TECHNIQUE: A frontal view of the chest and 2 views on 4 radiographs of the right ribs were obtained. COMPARISON: Chest 2 views 03/01/2019, chest CT 11/07/2021 FINDINGS: The chest demonstrates clear lungs without pneumonia, pleural effusion, or pneumothorax. Th e heart size is normal. There is a left chest pacer with leads in right atrium, right ventricle, and coronary sinus. IMPRESSION: 1. No rib fracture. Reviewed, dictated and finalized at location B. IMPRESSION: 1. No rib fracture.
--- NOTE | ~2022-01-14 | CT_ITS ---
EXAMINATION: CT abdomen pelvis wo con DATE: 01/14/2022 17:19 INDICATION: Left upper quadrant abdominal pain TECHNIQUE: Computed tomography (CT) of the abdomen and pelvis was performed without intravenous contr ast. Automated exposure control and iterative reconstruction technique were employed. The dose-length product was 1600.57 mGy-cm. COMPARISON: 08/30/2021 FINDINGS: Lung bases are clear. Heart size is normal. No pericardial or pleural effusion. Three lead pacemaker/ AICD seen with lead tips at the right atrial appendage, apex of the right ventricle and in a coronary vein overlying the lateral wall of the left ventricle having traversed the coronary sinus. Very smal l sliding-type hiatal hernia. Liver, gallbladder, spleen, pancreas, bilateral adrenal glands and left kidney are normal. 1.5 cm right renal cyst. Small fat-containing umbilical hernia. Bowels including the appendix are normal with no obstruction or abnormal wall thickening. Bladder is normal. No free i ntraperitoneal gas or fluid. No pathologically enlarged abdominal or pelvic lymphadenopathy. Mild low er lumbar levocurvature with mild spondylosis. IMPRESSION: 1. No acute intra-abdominal/pelvic process. 2. Very small sliding-type hiatal hernia. 3. Small fat-containing umbilical hernia. Reviewed, dictated and finalized at location A.
[2022-01-14 15:03] VITALS: BP 146/48; PULSE 72; RESP 20; TEMP 35.8; O2SAT 100
--- NOTE | 2022-01-14 15:21 | ED.GENADULT ---
HPI - General Adult General Chief complaint: Unspecified Stated complaint: RLQ pain Time Seen by Provider: 01/14/22 15:06 History of Present Illness HPI narrative: 51-year-old male here for evaluation of right-sided rib pain today. Patient states that he was in a coughing fit, when he noted a popping sensation in his right lateral ribs. Since then, pain has been severe, worse with coughing, deep breaths, and touching the area. He has not tried any medications for his pain. Patient has been experiencing cough, congestion, and rhinorrhea for the past 3 days. He has not taken a COVID test. Denies chest pain, shortness of breath, fevers, chills, neck swelling. Patient does state that he has been experiencing his popping sensation for quite a while, expresses concern for hernia. Related Data Home Medications Medication Instructions Recorded Confirmed aspirin 81 mg tablet,delayed 81 mg PO DAILY 04/30/20 10/23/21 release Allergies Allergy/AdvReac Type Severity Reaction Status Date / Time adhesive tape Allergy Intermediate BLISTERS Verified 01/14/22 15:11 Review of Systems Review of Systems: Gen.: Denies fevers or chills Eyes: Denies eye pain or visual change ENT: Denies congestion Respiratory: Reports right-sided rib pain and cough Denies shortness of breath CV: Denies chest pain or palpitations GI: Denies abdominal pain nausea, emesis or diarrhea denies burning, urgency, frequency or hematuria Musculoskeletal: Denies back pain or muscle pain Neuro: Denies numbness, tingling, weakness or focal weakness Skin: Denies rash Except as documented, all other systems reviewed and negative FOR[facility]LY [facility] Past Medical History Medical History Gant esophagus Chronic kidney disease, stage 3 Dilated cardiomyopathy Essential (primary) hypertension GERD (gastroesophageal reflux disease) History of blood clots ICD (implantable cardioverter-defibrillator) in place Lumbar back pain with radiculopathy affecting lower extremity Neuropathic pain of both legs SHAUNA (obstructive sleep apnea) PAD (peripheral artery disease) Surgical History Surgical History History of vascular surgery (~2014) R leg 2015, L leg 2016 Pacemaker (~2014) Family History Family History Father Diabetes mellitus Acute myocardial infarction Family history of chronic obstructive pulmonary disease Grandparent Acute myocardial infarction Family history of emphysema Social History Social History Smoking status: Never smoker Smoking end date: 08/03/85 Alcohol intake: never Alcohol use details: used to drink when he was younger Substance use: current Substance use type: marijuana Other substance usage details: Daily Spiritual care concerns: No Exam Narrative: APPEARANCE: No acute distress, nontoxic, resting in bed EYES: EOMI HEENT: Normocephalic, atraumatic, OMM RESPIRATORY: No respiratory distress Clear to auscultation bilaterally with no rhonchi wheezing or rales. CARDIOVASCULAR: Regular rate and rhythm without murmurs rubs or gallops. ABDOMINAL: Soft, nontender, nondistended, no rebound or guarding MUSCULOSKELETAl: Tender to palpation over right lower ribs. No ecchymosis or flail chest deformity. Moves all extremities. No clubbing, cyanosis or edema. NEURO: Awake and alert. Following commands, speech normal, no focal deficits SKIN: Warm, dry. No rashes lesions or abrasions PSYCHIATRIC: Normal affect/mood Course Vital Signs Vital signs: Vital Signs Temperature 96.4 F L 01/14/22 15:03 Pulse Rate 72 01/14/22 15:03 Respiratory Rate 20 01/14/22 15:03 Blood Pressure 146/48 H 01/14/22 15:03 Pulse Oximetry 100 01/14/22 15:03 Oxygen Delivery Room Air 01/14/22 15:03 Temperature 96.4 F L 01/01
[2022-01-14] MEDS: BENZONATATE 100 MG CAPSULE PO (15:48)
[2022-01-14] MEDS: methocarbamoL 500 MG TABLET PO (15:48)
[2022-01-14 16:46] LABS: SARS-CoV-2 RNA PCR Negative
[2022-01-14] MEDS: LIDOCAINE 5% PATCH 1 PATCH TRANSDERM (17:29)
[2022-01-14 17:54] VITALS: BP 148/80; PULSE 75; RESP 19; O2SAT 97
== END 2022-01-14 17:55 | disposition home or self-care (01) ==
PROVIDERS: Physician Assistant; Emergency Provider Emergency Medicine; PCP Family Medicine
DX: K44.9 Diaphragmatic hernia without obstruction or gangrene (principal); K42.9 Umbilical hernia without obstruction or gangrene; Z20.822 Contact with and (suspected) exposure to COVID-19; R07.81 Pleurodynia; I12.9 Hypertensive chronic kidney disease with stage 1 through stage 4 chronic kidney disease, or unspecified chronic kidney disease; N18.30 Chronic kidney disease, stage 3 unspecified; I42.0 Dilated cardiomyopathy; I73.9 Peripheral vascular disease, unspecified; K21.9 Gastro-esophageal reflux disease without esophagitis; K22.70 Barrett's esophagus without dysplasia; G47.33 Obstructive sleep apnea (adult) (pediatric); Z95.810 Presence of automatic (implantable) cardiac defibrillator; Z87.891 Personal history of nicotine dependence
CPT/HCPCS: 71101; 74176; 99284; A9270; C9803; U0003; U0005

== ENCOUNTER 2022-06-04 10:41 | Outpatient (CLI) | payer OTHER, MEDICARE, SELFPAY ==
[2022-06-05 11:08] LABS: Kit Draw Collected
== END 2022-06-04 10:42 | disposition home or self-care (01) ==
LOC: ANHGOSHLAB 10:45
PROVIDERS: PCP Nurse Practitioner; Visit Provider Nurse Practitioner
DX: I10 Essential (primary) hypertension (principal); E78.5 Hyperlipidemia, unspecified
CPT/HCPCS: 36415

== ENCOUNTER 2022-10-10 09:00 | Outpatient (CLI) | payer OTHER, MEDICARE, SELFPAY ==
[2022-10-10 12:35] LABS: Kit Draw Collected
== END 2022-10-10 09:01 | disposition home or self-care (01) ==
LOC: ANHGOSHLAB 09:01
PROVIDERS: PCP Family Medicine; Visit Provider Internal Medicine Nephrology
DX: N28.1 Cyst of kidney, acquired (principal); E78.5 Hyperlipidemia, unspecified; Z12.5 Encounter for screening for malignant neoplasm of prostate; D69.6 Thrombocytopenia, unspecified
CPT/HCPCS: 36415

== ENCOUNTER 2022-12-02 08:32 | Outpatient (CLI) | payer OTHER, MEDICARE, SELFPAY ==
--- NOTE | ~2022-12-02 | XR_ITS ---
EXAMINATION: XR abdomen/kub 1V DATE: 12/02/2022 08:47 INDICATION: Ureteral filling defect. TECHNIQUE: A supine view of the abdomen on 2 radiographs was obtained. COMPARISON: CT abdomen and pelvis 12/02/2022 FINDINGS: There are no dilated loops of bowel. There is no urolithiasis. IMPRESSION: 1. No urolithiasis. Reviewed, dictated and finalized at location A. IMPRESSION: 1. No urolithiasis.
--- NOTE | ~2022-12-02 | CT_ITS ---
CT of the Abdomen and Pelvis: Indication: Ureteral filling defect Technique: 2.5 mm axial scans were obtained through the abdomen and pelvis prior to and following in travenous administration of 130 cc of Omnipaque 350. Dose reduction technique was used on this scan b y utilizing automated exposure control and iterative reconstruction technique. The dose-length produc t (DLP) was 2987.75 mGy-cm. COMPARISON: 01/14/2022 Findings: Scans through the lung bases are unremarkable. The liver, spleen, pancreas, gallbladder, adrenals and kidneys are within normal limits. No evidence of aortic aneurysm. No lymphadenopathy. Ureters are well opacified, and unremarkable. No bowel obstruction or bowel wall thickening. There is no evidence to suggest acute appendicitis. Images through the pelvis were performed. Urinary bladder unremarkable. Prostate gland and seminal ve sicles are unremarkable. No ascites. Impression: No significant abnormalities seen. Reviewed, dictated and finalized at [facility]. Impression: No significant abnormalities seen.
[2022-12-02 09:09] LABS: Estimated Glomerular Filt Rate > 60
== END 2022-12-02 08:33 | disposition home or self-care (01) ==
PROVIDERS: PCP Family Medicine; Visit Provider Urology
DX: R93.41 Abnormal radiologic findings on diagnostic imaging of renal pelvis, ureter, or bladder (principal)
CPT/HCPCS: 74018; 74178; Q9967

== ENCOUNTER 2023-04-08 08:04 | Outpatient (CLI) | payer OTHER, MEDICARE, SELFPAY ==
[2023-04-08 19:32] LABS: Creatinine Urine 27.2 mg/dL; Total Protein Urine Random 9 mg/dL; Ur Ttl Prot Creatinine Ratio 0.33 mg/mg (0-0.20)
[2023-04-08 20:04] LABS: Albumin Level 4.4 g/dL (3.5-5.1); Anion Gap 7 mmol/L (8-16); Blood Urea Nitrogen 14 mg/dL (9-20); Calcium 9.5 mg/dL (8.4-10.2); Carbon Dioxide 31 mmol/L (22-30); Chloride 99 mmol/L (98-107); Estimated Glomerular Filt Rate > 60; Glucose 78 mg/dL (65-110); Phosphorus 3.1 mg/dL (2.5-4.5); Potassium 4.1 mmol/L (3.4-5.0); Sodium 137 mmol/L (137-145)
== END 2023-04-08 08:05 | disposition home or self-care (01) ==
LOC: ANHGOSHLAB 08:06
PROVIDERS: PCP Family Medicine; Visit Provider Internal Medicine Nephrology
DX: N28.1 Cyst of kidney, acquired (principal)
CPT/HCPCS: 36415; 80069; 82570; 84156

== ENCOUNTER → 2023-05-08 12:06 | Outpatient (CLI) | payer OTHER, MEDICARE, SELFPAY ==
--- NOTE | ~2023-05-08 | XR_ITS ---
XR shoulder RT min 2V DATE: 05/08/2023 12:22 INDICATION: Right shoulder pain. Disorder of synovium and tendon TECHNIQUE: 4 views of right shoulder COMPARISON: None FINDINGS: There is minimal joint space narrowing and prominent spurring at the glenohumeral joint con sistent with severe osteoarthritis. There is degenerative change at the acromioclavicular joint. No fracture or dislocation, periosteal reaction or bone destruction or abnormal soft tissue calcifica tion of the right shoulder is noted. Pacemaker leads are partially included in the examination. IMPRESSION: Severe glenohumeral osteoarthritis Degenerative change at the right acromioclavicular joint Reviewed, dictated and finalized at location B.
== END ==
PROVIDERS: PCP Nurse Practitioner Family; Visit Provider Nurse Practitioner Family
DX: M19.011 Primary osteoarthritis, right shoulder (principal); M24.111 Other articular cartilage disorders, right shoulder; M67.911 Unspecified disorder of synovium and tendon, right shoulder
CPT/HCPCS: 73030

== ENCOUNTER 2023-08-21 09:16 | Outpatient (CLI) | payer OTHER, MEDICARE, SELFPAY ==
[2023-08-21 12:04] LABS: Appearance Urine Clear (Clear); Bilirubin Urine Negative (Negative); Blood Urine Negative (Negative); Color Urine Yellow (Yellow); Glucose Urine UA Negative (Negative); Ketones Urine Trace mg/dL (Negative); Leukocyte Esterase Ur Negative LEU/UL (NEGATIVE); Nitrate Urine Negative (Negative); Protein Urine Negative (Negative); Specific Grav Ur 1.019 (1.001-1.035)
[2023-08-21 12:07] LABS: Basophils Absolute Auto 0.1 K/mm3 (0.0-0.1); Basophils Percent Auto 0.7 % (0.2-1.2); Eosinophils Absolute Auto 0.1 K/mm3 (0-0.3); Eosinophils Percent Auto 1.3 % (0-4.4); Hematocrit 45.4 % (42.0-52.0); Hemoglobin 14.8 g/dL (14.0-18.0); Immature Granulocyte Absolute 0.06 K/mm3 (0.00-0.031); Immature Granulocyte Percent A 0.6 % (0-0.5); Lymphocytes Absolute Auto 2.47 K/mm3 (0.9-3.2); Mean Corpuscular HGB Conc 32.6 g/dl (32-36); Mean Corpuscular Hemoglobin 32.1 pg (26-34); Mean Corpuscular Volume 98.5 fl (80-100); Mean Platelet Volume 11.4 fl (7.4-10.4); Monocytes Absolute Auto 0.8 K/mm3 (0.1-0.6); Monocytes Percent Auto 7.5 % (2.6-8.5); Neutrophils Absolute Auto 6.8 K/mm3 (1.3-6.7); Neutrophils Percent Auto 65.9 % (45.5-73.1); Platelet Count Result 151 k/mm3 (150-375); Red Blood Count 4.61 M/mm3 (4.6-6.20); Red Cell Distribution Width 14.1 % (11.5-14.5); White Blood Count 10.3 K/mm3 (4.5-10.0)
[2023-08-21 12:20] LABS: Add Urine Microscopic? NO; Alanine Aminotransferase 52 U/L (6-50); Albumin Level 4.2 g/dL (3.5-5.1); Alkaline Phosphatase 109 U/L (38-126); Anion Gap 3 mmol/L (8-16); Aspartate Amino Transferase 56 U/L (17-59); Bilirubin,Total 1.2 mg/dL (0.2-1.3); Blood Urea Nitrogen 21 mg/dL (9-20); Calcium 9.3 mg/dL (8.4-10.2); Carbon Dioxide 28 mmol/L (22-30); Chloride 103 mmol/L (98-107); Cholesterol 135 mg/dL (0-200); Estimated Glomerular Filt Rate > 60; Glucose 93 mg/dL (65-110); HDL Direct 26 mg/dL; Potassium 3.9 mmol/L (3.4-5.0); Sodium 134 mmol/L (137-145); Triglycerides 98 mg/dL (<150)
[2023-08-21 12:24] LABS: Uric Acid 6.3 mg/dL (3.5-8.5)
[2023-08-21 12:25] LABS: Hemoglobin A1C 5.8 % (<5.7)
[2023-08-21 12:31] LABS: LDL Cholesterol Direct 83 mg/dL
[2023-08-21 12:35] LABS: Creatinine Urine 196.5 mg/dL
[2023-08-21 12:56] LABS: Total Protein Urine Random < 5 mg/dL; Ur Ttl Prot Creatinine Ratio < 0.03 mg/mg (0-0.20)
== END 2023-08-21 09:17 | disposition home or self-care (01) ==
LOC: ANHGOSHLAB 09:18
PROVIDERS: Internal Medicine Nephrology; PCP Nurse Practitioner Family; Visit Provider Nurse Practitioner Family
DX: Z00.00 Encounter for general adult medical examination without abnormal findings (principal); I10 Essential (primary) hypertension; Z13.220 Encounter for screening for lipoid disorders; Z13.29 Encounter for screening for other suspected endocrine disorder; Z13.1 Encounter for screening for diabetes mellitus; N20.0 Calculus of kidney; N28.1 Cyst of kidney, acquired; E11.9 Type 2 diabetes mellitus without complications
CPT/HCPCS: 36415; 80053; 80061; 81003; 82570; 83036; 84156; 84443; 84550; 85025

== ENCOUNTER 2023-10-09 10:43 | Emergency (ER) | payer OTHER, MEDICARE, SELFPAY ==
--- NOTE | 2023-10-09 10:46 | ED.URI ---
HPI - URI/Sore Throat General Stated Complaint: chest congestion,headache Time Seen by Provider: 10/09/23 10:46 Related Data Home Medications Medication Instructions Recorded Confirmed aspirin 81 mg tablet,delayed 81 mg PO DAILY 04/30/20 06/11/23 release Allergies Allergy/AdvReac Type Severity Reaction Status Date / Time adhesive tape Allergy Intermediate BLISTERS Verified 10/09/23 10:44 [facility] Past Medical History Medical History Gant esophagus Chronic kidney disease, stage 3 Dilated cardiomyopathy DJD of shoulder Essential (primary) hypertension GERD (gastroesophageal reflux disease) History of blood clots ICD (implantable cardioverter-defibrillator) in place Lumbar back pain with radiculopathy affecting lower extremity Neuropathic pain of both legs PAD (peripheral artery disease) Right shoulder pain Rotator cuff dysfunction Surgical History Surgical History Cardiac defibrillator in place History of vascular surgery (~2014) R leg 2015, L leg 2016 Pacemaker (~2014) Family History Family History Father Diabetes mellitus Acute myocardial infarction Family history of chronic obstructive pulmonary disease Grandparent Acute myocardial infarction Family history of emphysema Unknown Arthritis Hypertension Social History Social History Smoking status: Former smoker Tobacco type: cigarettes Smoking end date: 08/03/85 Alcohol intake: never Alcohol use details: used to drink when he was younger Substance use: current Substance use type: marijuana Other substance usage details: Daily Lack of Transportation: No Lack of Food: Never True Current Housing: I Have Housing Concerned About Future Housing: No Difficulty Paying Gas/Electric Bills: No Difficulty Paying for Meds: No Currently Unemployed: No Education: High School Diploma/GED Difficulty w/ Childcare or Family Care: No Living arrangements: with family Additional living arrangements comments: Occupation/Education: other Additional occupation/education comments: Disabled Gender identity (if verbalized by the patient): Male Sexual Orientation (if Verbalized by the Patient): Straight or Heterosexual Spiritual care concerns: No Discharge Plan Discharge Prescriptions: No Action aspirin 81 mg tablet,delayed release (DR/EC) 81 mg PO DAILY cholecalciferol (vitamin D3) 1,250 mcg (50,000 unit) capsule 1,250 mcg PO WEEKLY Qty: 14 1RF atorvastatin 80 mg tablet 80 mg PO DAILY Qty: 100 1RF furosemide [Lasix] 40 mg tablet 40 mg PO BID Qty: 180 1RF omeprazole 40 mg capsule,delayed release(DR/EC) 40 mg PO DAILY Qty: 30 0RF gabapentin 300 mg capsule 900 mg PO TID Qty: 810 0RF lisinopril 10 mg tablet 10 mg PO BID Qty: 180 1RF carvedilol 25 mg tablet 25 mg PO BID Qty: 180 1RF Follow-up/Referrals: Rosa Maria Valera, BED MANAGER [Primary Care Provider] -
== END 2023-10-09 10:58 | disposition left against medical advice (07) ==
PROVIDERS: Emergency Provider Internal Medicine Hematology & Oncology; PCP Nurse Practitioner Family
DX: R51.9 Headache, unspecified (principal)
CPT/HCPCS: 99199

== ENCOUNTER 2024-02-10 09:28 | Outpatient (CLI) | payer OTHER, MEDICARE, SELFPAY ==
[2024-02-15 10:34] LABS: Vitamin D 1,25 (OH)2 Total 30 pg/mL (18-72); Vitamin D2 1,25 (OH)2 <8 pg/mL; Vitamin D3 1,25 (OH)2 30 pg/mL
== END 2024-02-10 09:29 | disposition home or self-care (01) ==
LOC: ANHGOSHLAB 09:32
PROVIDERS: PCP Nurse Practitioner Family; Visit Provider Family Medicine
DX: E55.9 Vitamin D deficiency, unspecified (principal)
CPT/HCPCS: 36415; 82652

== ENCOUNTER 2024-03-01 13:36 | Emergency (ER) | payer OTHER, MEDICARE, SELFPAY ==
[2024-03-01] VITALS (20 sets, daily range): BP systolic 102–111; BP diastolic 56–84; PULSE 60–78; RESP 14–26; O2SAT 96–100
--- NOTE | ~2024-03-01 | XR_ITS ---
EXAMINATION: XR shoulder RT min 2V DATE: 03/01/2024 16:24 INDICATION: Right shoulder pain post fall TECHNIQUE: AP internally and externally rotated, AP oblique externally rotated and transscapular Y vi ews of the right shoulder were obtained. COMPARISON: None FINDINGS: Normal alignment. No fracture.Severe right glenohumeral and acromioclavicular osteoarthritis. Soft t issues are unremarkable. Visualized portion of the right lung is clear. IMPRESSION: Severe right glenohumeral and acromioclavicular osteoarthritis. No acute osseous abnormality. Reviewed, dictated and finalized at location A. IMPRESSION: Severe right glenohumeral and acromioclavicular osteoarthritis. No acute osseou s abnormality.
--- NOTE | ~2024-03-01 | CT_ITS ---
EXAMINATION: CT brain wo con DATE: 03/01/2024 16:11 INDICATION: Syncope. Head injury. Neck pain. TECHNIQUE: Computed tomography (CT) of the head was performed without intravenous contrast. The mA wa s adjusted according to patient size. Iterative reconstruction technique was employed. The dose-lengt h product was 681.00 mGy-cm. COMPARISON: None FINDINGS: There is no intracranial hemorrhage, acute infarction, or abnormal intracranial mass lesion . The ventricles are normal in size. There is mucosal thickening in the paranasal sinuses. The orbits are normal. The mastoid air cells are normal. IMPRESSION: 1. Normal brain. Reviewed, dictated and finalized at location A. IMPRESSION: 1. Normal brain.
--- NOTE | ~2024-03-01 | CT_ITS ---
EXAMINATION: CT cervical spine wo con DATE: 03/01/2024 16:11 INDICATION: Neck pain. Head injury. TECHNIQUE: Computed tomography (CT) of the cervical spine was performed without intravenous contrast. Automated exposure control and iterative reconstruction technique were employed. The dose-length pro duct was 681.00 mGy-cm. COMPARISON: None FINDINGS: There is 3 degrees dextrocurvature of cervical spine. There is hypolordosis of cervical spi ne. Vertebral body heights are normal. There is moderately decreased disc height at C5-C6 and C6-C7. The following disc levels are specifically discussed: C2-C3: There is mild bilateral uncovertebral joint osteoarthritis. There is mild right and moderate l eft facet joint osteoarthritis. There is mild left neural foraminal stenosis. There is no central can al stenosis. C3-C4: There is moderate bilateral uncovertebral joint osteoarthritis. There is moderate and severe l eft facet joint osteoarthritis. There is mild bilateral neural foraminal stenosis. There is mild cent ral canal stenosis. C4-C5: There is mild bilateral uncovertebral joint osteoarthritis. There is mild right and severe lef t facet joint osteoarthritis. There is no neural foraminal stenosis. There is mild central canal sten osis. C5-C6: There is mild bilateral uncovertebral joint osteoarthritis. There is moderate bilateral facet joint osteoarthritis. There is no neural foraminal stenosis. There is mild central canal stenosis. C6-C7: There is mild right and severe left uncovertebral joint osteoarthritis. There is mild bilatera l facet joint osteoarthritis. There is mild bilateral neural foraminal stenosis. There is mild centra l canal stenosis. C7-T1: There is no uncovertebral joint osteoarthritis. There is severe bilateral facet joint osteoart hritis. There is no neural foraminal stenosis. There is mild central canal stenosis. IMPRESSION: 1. No fracture. 2. Moderate cervical spondylosis. Reviewed, dictated and finalized at location A.
--- NOTE | ~2024-03-01 | XR_ITS ---
EXAMINATION: XR ribs RT 2V DATE: 03/01/2024 16:24 INDICATION: Posterior right rib pain post syncopal episode with fall TECHNIQUE: 4 views of the right ribs were obtained. COMPARISON: Chest radiograph dated 03/01/2024 FINDINGS: No rib fractures identified. Right lung is clear with no focal airspace opacities, pulmonary edema, p leural effusion or pneumothorax. Three lead pacemaker/AICD seen with leads projecting over the expect ed locations of the right atrial appendage, apex of the right ventricle and overlying the left ventri aries likely having traversed the coronary sinus. Severe right glenohumeral and acromioclavicular osteo arthritis. IMPRESSION: 1. No rib fracture or evident acute cardiopulmonary disease in the right hemithorax. Reviewed, dictated and finalized at location A. IMPRESSION: 1. No rib fracture or evident acute cardiopulmonary disease in the right hemith orax.
--- NOTE | ~2024-03-01 | XR_ITS ---
EXAMINATION: XR lumbar spine 2-3V DATE: 03/01/2024 16:24 INDICATION: Low back pain. Bulging disc. TECHNIQUE: 3 views of lumbar spine were obtained. COMPARISON: Lumbar spine radiographs 02/10/2018 FINDINGS: There is 7 degrees levocurvature of lumbar spine. There is 4 mm retrolisthesis of L3 on L4. Vertebral body heights are normal. There is mildly decreased disc height at L2-L3 and moderately dec reased disc height from L3-L4 to L5-S1. There is multilevel moderate to severe facet joint osteoarthr itis. IMPRESSION: 1. Moderate lumbar spondylosis. Reviewed, dictated and finalized at location A.
--- NOTE | ~2024-03-01 | XR_ITS ---
XR chest 2V Ordering provider: Jonatan Younger MD History: 54 years Male with . syncope LAST NIGHT . Comparison: None. FINDINGS: MEDIASTINUM: The cardiac silhouette is not enlarged. Left bipolar pacemaker. LUNGS: No infiltrates, effusions or pneumothorax. OTHER: No free air under the diaphragm. Degenerative changes of the spine. IMPRESSION: No acute cardiopulmonary pathology. Reviewed, dictated and finalized at location A.
--- NOTE | 2024-03-01 13:55 | ECG_ITS ---
Test Date: 2024-03-01 13:59:59 Measurements Intervals [place] Rate: 79 P: 0 TN: 0 QRS: -85 QRSD: 150 T: 89 QT: 413 QTc: 474 Interpretive Statements ATRIAL SENSE- ELECTRONIC VENTRICULAR PACEMAKER NO FURTHER INTERPRETATION IS POSSIBLE BASELINE WANDER- V1-V4 ATYPICAL ECG No previous ECG available for comparison Electronically Signed On 03-01-2024 14:59:23 CDT by Jacobo White D.O.
[2024-03-01 14:16] LABS: Basophils Absolute Auto 0.1 K/mm3 (0.0-0.1); Basophils Percent Auto 0.8 % (0.2-1.2); Eosinophils Absolute Auto 0.1 K/mm3 (0-0.3); Eosinophils Percent Auto 1.1 % (0-4.4); Hematocrit 43.5 % (42.0-52.0); Hemoglobin 15.2 g/dL (14.0-18.0); Immature Granulocyte Absolute 0.02 K/mm3 (0.00-0.031); Immature Granulocyte Percent A 0.2 % (0-0.5); Lymphocytes Percent Auto 22.5 % (18.3-44.2); Mean Corpuscular HGB Conc 34.9 g/dl (32-36); Mean Corpuscular Hemoglobin 32.5 pg (26-34); Mean Corpuscular Volume 92.9 fl (80-100); Mean Platelet Volume 10.6 fl (7.4-10.4); Monocytes Absolute Auto 0.5 K/mm3 (0.1-0.6); Monocytes Percent Auto 5.2 % (2.6-8.5); Neutrophils Absolute Auto 6.6 K/mm3 (1.3-6.7); Neutrophils Percent Auto 70.2 % (45.5-73.1); Platelet Count Result 141 k/mm3 (150-375); Red Blood Count 4.68 M/mm3 (4.6-6.20); Red Cell Distribution Width 13.4 % (11.5-14.5); White Blood Count 9.3 K/mm3 (4.5-10.0)
[2024-03-01 14:26] LABS: Alanine Aminotransferase 47 U/L (6-50); Albumin Level 4.4 g/dL (3.5-5.1); Alkaline Phosphatase 114 U/L (38-126); Anion Gap 12 mmol/L (4-12); Aspartate Amino Transferase 41 U/L (17-59); Bilirubin,Total 1.1 mg/dL (0.2-1.3); Blood Urea Nitrogen 16 mg/dL (9-20); Calcium 9.7 mg/dL (8.4-10.2); Carbon Dioxide 25 mmol/L (22-30); Chloride 100 mmol/L (98-107); Estimated CRCL calculation 82 ml/min; Estimated Glomerular Filt Rate > 60; Glucose 132 mg/dL (65-110); Potassium 3.4 mmol/L (3.4-5.0); Sodium 137 mmol/L (137-145)
--- NOTE | 2024-03-01 15:32 | ED.SYNCOPE ---
HPI - Syncope General Chief Complaint: Syncope <HUY Braden Last Filed: 03/01/24 15:42> Stated Complaint: syncope 02/28 hit head and shoulder <HUY Braden Last Filed: 03/01/24 15:42> Time Seen by Provider: 03/01/24 15:32 <HUY Braden Last Filed: 03/01/24 15:42> Focused HPI: Patient is a 54 y/o male, with PMH of pacemaker/AICD, cardiomyopathy, HTN, peripheral neuropathy, who presents to the ED with c/o syncope. Patient reports he had a syncopal episode yesterday. States he stood up out of bed and became dizzy, which is not usual for him . States he typically attributes this to his gabapentin. Does note he has lost 120lbs in the past 1 year and is in the process of having his BP medications adjusted. He was then walking down the hallway and began feeling lightheaded. Attempted to make it back to his bed, but had a syncopal episode in the hallway. Unsure how long he was unconscious for. He states he woke up on the ground and felt as though he hit his back on something. He reported having blurry vision for a few minutes after regaining consciousness, states this has since resolved. Feeling back to normal today, intermittently dizzy. Does also c/o pain to his R shoulder, R mid back, neck, and head. Denies CP, SOB, palpitations. GENERAL: Well-appearing, obese with BMI of 34.5, and in no acute distress. HEAD: Normocephalic, atraumatic. CHEST: Clear to auscultation. ?No respiratory distress. HEART: Regular rate and rhythm.? MSK: Mild TTP in posterior R cervical musculature, lumbar paraspinal muscles, R posterior inferior rib cage. NEURO: ?Alert and oriented x3. Patient screened in triage and initial orders placed.? ?Additional care and disposition to be based upon?diagnostic testing and treatment. <HUY Braden Filed: 03/01/24 15:42> Source: patient <HUY Braden Filed: 03/01/24 15:42> Mode of arrival: ambulatory <Mildred Trinh PA-C - Last Filed: 03/01/24 15:42> Limitations: no limitations <Mildred Trinh PA-C - Last Filed: 03/01/24 15:42> History of Present Illness HPI narrative: This is a 54-year-old man with a past medical history significant for peripheral 2 disease, pacemaker placement and chronic neuropathic pain. Today patient presents to the ED after he had a fall yesterday. Patient states that whenever he takes his high-dose gabapentin 900 mg t.i.d. he feels somewhat dizzy. He states after he took his medications yesterday afternoon he was trying to walk but felt lightheaded to the point that he had to pass out. He fell from ground level height but was able to get up immediately off the ground. He did strike his head. Patient is present complaining of headache, neck pain, right-sided rib pain. He was otherwise in his normal state of health. He states is occasionally having stoma is not abnormal for him to feel lightheaded while he is taking his items medications at home in. Denies any blood thinner medications, no history of seizures. Denies any vision changes, nausea, vomiting, weakness, fatigue, chest pain, shortness of breath. <Tim Yost MD - Last Filed: 03/01/24 19:10> Related Data Home Medications: Home Medications Medication Instructions Recorded Confirmed aspirin 81 mg tablet,delayed 81 mg PO DAILY 04/30/20 10/12/23 release lisinopril 10 mg tablet 10 mg PO DAILY 02/17/24 <Mildred Trinh PA-C - Last Filed: 03/01/24 15:42> Allergies/Adverse Reactions: Allergies Allergy/AdvReac Type Severity Reaction Status Date / Time adhesive tape Allergy Intermediate BLISTERS Verified 03/01/24 13:37 <Mildred Trinh PA-C - Last Filed: 03/01/24 15:42> Review of Systems Review of Systems: as above in HPI <Tim Yost MD - Last Filed: 03/01/24 19:10> PMFSH Past Medical History Medical History: Medical History (R
--- NOTE | 2024-03-01 15:39 | PC.NURSE ---
this RN spoke w/Kaz in lab to add on Mg and Trop baseline
[2024-03-01 16:00] LABS: Troponin I < 0.012 ng/mL (0.000-0.034)
--- NOTE | 2024-03-01 16:52 | ED.SYNCOPE ---
HPI - Syncope General Chief Complaint: Syncope Stated Complaint: syncope 02/28 hit head and shoulder Time Seen by Provider: 03/01/24 15:32 Source: patient Mode of arrival: ambulatory Limitations: no limitations History of Present Illness HPI narrative: This is a 54-year-old man with a past medical history significant for peripheral 2 disease, pacemaker placement and chronic neuropathic pain. Today patient presents to the ED after he had a fall yesterday. Patient states that whenever he takes his high-dose gabapentin 900 mg t.i.d. he feels somewhat dizzy. He states after he took his medications yesterday afternoon he was trying to walk but felt lightheaded to the point that he had to pass out. He fell from ground level height but was able to get up immediately off the ground. He did strike his head. Patient is present complaining of headache, neck pain, right-sided rib pain. He was otherwise in his normal state of health. He states is occasionally having stoma is not abnormal for him to feel lightheaded while he is taking his items medications at home in. Denies any blood thinner medications, no history of seizures. Denies any vision changes, nausea, vomiting, weakness, fatigue, chest pain, shortness of breath. Related Data Home Medications Medication Instructions Recorded Confirmed aspirin 81 mg tablet,delayed 81 mg PO DAILY 04/30/20 10/12/23 release lisinopril 10 mg tablet 10 mg PO DAILY 02/17/24 Allergies Allergy/AdvReac Type Severity Reaction Status Date / Time adhesive tape Allergy Intermediate BLISTERS Verified 03/01/24 13:37 Review of Systems Review of Systems: As reviewed above in the HPI [facility] Past Medical History Medical History Gant esophagus Chronic kidney disease, stage 3 Dilated cardiomyopathy DJD of shoulder Essential (primary) hypertension GERD (gastroesophageal reflux disease) History of blood clots ICD (implantable cardioverter-defibrillator) in place Lumbar back pain with radiculopathy affecting lower extremity Neuropathic pain of both legs PAD (peripheral artery disease) Purpura Right shoulder pain Rotator cuff dysfunction Sinus infection Surgical History Surgical History Cardiac defibrillator in place History of vascular surgery (~2014) R leg 2015, L leg 2016 Pacemaker (~2015) Family History Family History Father Diabetes mellitus Acute myocardial infarction Family history of chronic obstructive pulmonary disease Grandparent Acute myocardial infarction Family history of emphysema Unknown Arthritis Hypertension Social History Social History Smoking status: Former smoker Tobacco type: cigarettes Smoking end date: 08/03/85 Alcohol intake: never Alcohol use details: used to drink when he was younger Substance use: current Substance use type: marijuana Other substance usage details: Daily Lack of Transportation: No Lack of Food: Never True Current Housing: I Have Housing Concerned About Future Housing: No Difficulty Paying Gas/Electric Bills: No Difficulty Paying for Meds: No Currently Unemployed: No Education: High School Diploma/GED Difficulty w/ Childcare or Family Care: No Living arrangements: with family Additional living arrangements comments: Occupation/Education: other Additional occupation/education comments: Disabled Gender identity (if verbalized by the patient): Male Sexual Orientation (if Verbalized by the Patient): Straight or Heterosexual Spiritual care concerns: No Exam Narrative: GENERAL: [Well-appearing, well-nourished, and in no acute distress.] HEAD: [Normocephalic, atraumatic.] EYES: [PERRLA and EOMI.] ENT: Nares clear, no rhinorrhea or e
--- NOTE | 2024-03-01 17:11 | PC.NURSE ---
[employer] interrogated at 1645. have not received report, called and spoke to ella, updated fax number and she will send report
== END 2024-03-01 19:33 | disposition home or self-care (01) ==
PROVIDERS: Emergency Medicine; Physician Assistant; Emergency Provider Student in an Organized Health Care Education/Training Program; PCP Nurse Practitioner Family
DX: R55 Syncope and collapse (principal); S20.211A Contusion of right front wall of thorax, initial encounter; S09.90XA Unspecified injury of head, initial encounter; I12.9 Hypertensive chronic kidney disease with stage 1 through stage 4 chronic kidney disease, or unspecified chronic kidney disease; N18.30 Chronic kidney disease, stage 3 unspecified; I42.0 Dilated cardiomyopathy; I73.9 Peripheral vascular disease, unspecified; M19.011 Primary osteoarthritis, right shoulder; G62.9 Polyneuropathy, unspecified; K21.9 Gastro-esophageal reflux disease without esophagitis; Z95.810 Presence of automatic (implantable) cardiac defibrillator; Z87.891 Personal history of nicotine dependence; Z79.82 Long term (current) use of aspirin; Z79.899 Other long term (current) drug therapy; W18.39XA Other fall on same level, initial encounter; M47.812 Spondylosis without myelopathy or radiculopathy, cervical region; M47.816 Spondylosis without myelopathy or radiculopathy, lumbar region
CPT/HCPCS: 36415; 70450; 71046; 71100; 72100; 72125; 73030; 80053; 83735; 84484; 85025; 93005; 99284

== ENCOUNTER 2024-08-22 11:36 | Outpatient (CLI) | payer OTHER, MEDICARE, SELFPAY ==
[2024-08-22 13:21] LABS: Basophils Absolute Auto 0.1 K/mm3 (0.0-0.1); Basophils Percent Auto 0.8 % (0.2-1.2); Eosinophils Absolute Auto 0.2 K/mm3 (0-0.3); Eosinophils Percent Auto 1.9 % (0-4.4); Hematocrit 45.4 % (42.0-52.0); Hemoglobin 15.1 g/dL (14.0-18.0); Immature Granulocyte Absolute 0.04 K/mm3 (0.00-0.031); Immature Granulocyte Percent A 0.4 % (0-0.5); Lymphocytes Absolute Auto 2.11 K/mm3 (0.9-3.2); Lymphocytes Percent Auto 23.1 % (18.3-44.2); Mean Corpuscular HGB Conc 33.3 g/dl (32-36); Mean Corpuscular Hemoglobin 32.5 pg (26-34); Mean Corpuscular Volume 97.8 fl (80-100); Mean Platelet Volume 10.6 fl (7.4-10.4); Monocytes Absolute Auto 0.8 K/mm3 (0.1-0.6); Monocytes Percent Auto 8.5 % (2.6-8.5); Neutrophils Percent Auto 65.3 % (45.5-73.1); Platelet Count Result 162 k/mm3 (150-375); Red Blood Count 4.64 M/mm3 (4.6-6.20); Red Cell Distribution Width 15.1 % (11.5-14.5); White Blood Count 9.1 K/mm3 (4.5-10.0)
[2024-08-22 13:53] LABS: Alanine Aminotransferase 50 U/L (6-50); Albumin Level 4.1 g/dL (3.5-5.1); Alkaline Phosphatase 127 U/L (38-126); Anion Gap 6 mmol/L (4-12); Aspartate Amino Transferase 54 U/L (17-59); Bilirubin,Total 0.8 mg/dL (0.2-1.3); Blood Urea Nitrogen 19 mg/dL (9-20); Calcium 9.1 mg/dL (8.4-10.2); Carbon Dioxide 29 mmol/L (22-30); Chloride 101 mmol/L (98-107); Cholesterol 135 mg/dL (0-200); Estimated Glomerular Filt Rate > 60; Glucose 95 mg/dL (65-110); HDL Direct 31 mg/dL; Potassium 4.1 mmol/L (3.4-5.0); Sodium 136 mmol/L (137-145); Triglycerides 315 mg/dL (<150)
[2024-08-22 13:55] LABS: Vitamin D 25 Hydroxy 48.3 ng/mL
[2024-08-22 14:04] LABS: LDL Cholesterol Direct 75 mg/dL
[2024-08-22 14:13] LABS: Prostate Specific Antigen 0.5 ng/mL (< OR = 4.0)
[2024-08-22 14:22] LABS: Hemoglobin A1C 5.6 % (<5.7)
== END 2024-08-22 11:37 | disposition home or self-care (01) ==
LOC: ANHGOSHLAB 11:37
PROVIDERS: PCP Family Medicine; Visit Provider Nurse Practitioner Family
DX: Z00.00 Encounter for general adult medical examination without abnormal findings (principal); Z13.29 Encounter for screening for other suspected endocrine disorder; Z12.5 Encounter for screening for malignant neoplasm of prostate; R73.03 Prediabetes; I10 Essential (primary) hypertension; E55.9 Vitamin D deficiency, unspecified; E78.5 Hyperlipidemia, unspecified
CPT/HCPCS: 36415; 80053; 80061; 82306; 83036; 84153; 84443; 85025; G0103

== ENCOUNTER 2025-03-15 13:59 | Outpatient (CLI) | payer OTHER, MEDICARE, SELFPAY ==
--- NOTE | ~2025-03-15 | CT_ITS ---
CT OF left shoulder EXAMINATION: CT shoulder LT wo con DATE: 03/15/2025 14:16 INDICATION: Left shoulder pain TECHNIQUE: Computed tomography (CT) of the left shoulder was performed without intravenous contrast. Automated exposure control and iterative reconstruction technique were employed. The dose-length prod uct was 617.77 mGy-cm. COMPARISON: 03/01/2024 FINDINGS: Moderate AC joint and glenohumeral joint narrowing, subchondral sclerosis, and osteophytosis. 14 mm o ssific body in the posterior inferior glenohumeral joint space. No fracture or dislocation. No lytic or blastic lesion. No erosions or other suspicious periosteal change. Degenerative changes in the tho racic spine. Subacromial narrowing. Severe thinning of the superior cuff, predominantly involving the supraspinatus which appears mildly atrophied. Left chest pacer/AICD. IMPRESSION: Moderate AC joint and glenohumeral joint osteoarthritis. 14 mm loose body in the posterior inferior glenohumeral joint recess. Likely rotator cuff pathology, supraspinatus tear is suspected. Reviewed, dictated and finalized at location K.
--- OUTSIDE RECORDS SUMMARY | 2025-03-15 14:03 | XMS_ITS | Encounter Summary ---
Author Organization [facility] [employer] of [facility] Address [address] [place] [address] Phone Care Team Providers Care Ordinary Seaman Name Role Phone Serna, Audi Primary Care Provider [phone] Unknown, Yanci Primary Care Provider Unavail able SernaAudi Primary Care Provider [phone] Unknown, Letynfdarin Primary Care Provider Unavail able Figueroa Bonilla MD Primary Care Provider [phone]- [phone] Figueroa Bonilla MD Primary Care Provider + [phone] Figueroa Bonilla MD Unavailable [phone] Anna Liu DPT Unavailable No, Physician Primary Care Provider [phone] Maddy Land RN Unavailable Unavaila Michelle Serrato MD Primary Care Provider Myra Camargo MD Unavailable [phone] Encounter Details Date Type Department Care Team (Late st Contact Info) Description 11/08/2015 Orders Only [facility] ProviderPerez MD [address] [place] [address] Social History Tobacco Use Types Packs/Day Years Used Date Smoking Tobacco: Never Assessed Sex and Gender Information Value Date Recorded Sex Assigned at Not on file Legal Sex 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 us Historical Provider [facility] Final Result documented in this encounter Visit Diagnoses Not on filedocumented in this encounter Care Teams Ordinary Seaman Relationship Specialty Start Date End Date Audi Serna [address] [id number] PCP - General 12/12/16 06/02/17 Unknown, Notinfile PCP - General 06/03/17 06/07/17 Audi Serna [address] [id number] PCP - General 06/08/17 11/30/17 Unknown, Notinfile PCP - General 12/01/17 03/12/18 Figueroa Bonilla MD [address] [place] [address] PCP - General 03/13/18 11/08/18 Figueroa Bonilla MD [address] [place] [address] PCP - General Family Practice 11/09/18 08/23/20 No, Physician PCP - General 08/24/20 05/20/22 Michelle Pritchett MD PCP - General Family Practice 05/21/22 Figueroa Bonilla MD [address] [place] [address] 11/09/18 Anna Liu, NORAT [address] [place] [address] Physical Therapist Physical Therapy 03/04/19 08/04/19 Maddy Land, TIA Pre Coordinator Cardiology 04/23/22 Myra Camargo MD Surgeon Vascular Surgery 06/05/22 documented as of this encounter
--- OUTSIDE RECORDS SUMMARY | 2025-03-15 14:03 | XMS_ITS | Encounter Summary ---
Author Organization [facility] Address [address] [place] [address] Care Team Providers Care Subcontracts Manager Name Role Phone Figueroa Bonilla MD Primary Care Provider [phone]- [phone] Figueroa Bonilla MD Unavailable [phone] Anna Liu DPT Unavailable No, Physician Primary Care Provider Maddy Land RN Unavailable Unavaila Michelel Serrato MD Primary Care Provider Myra Camargo MD Unavailable [phone] Encounter Details Date Type Department Care Team (Late st Contact Info) Description 03/23/2019 Telephone [facility] [place] [facility] [address] [facility] [address] [place] [address] Christianne Bertrand MD PhD [address] [facility] [address] [facility] [place] [address] Social History Tobacco Use Types Packs/Day Years Used Date Smoking Tobacco: Former Smokeless Tobacco: Never Comments:very intermittent i n past Alcohol Use Standard Drinks/Week Comments No 0 (1 standard drink = 0.6 oz pur e alcohol) Sex and Gender Information Value Date Recorded Sex Assigned at Not on file 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 Author CCM Chronic Pain Care Plan Chronic Care Management Improving( 2:35 PM BOOT TRIMMER) Briseyda Duenas, RN Note: Problem: Chronic Pain Goals: 1. Minimize further functional decline 2. Maximize quality of life 3. Control pain Strategies: - Activity/exercise program recommendation - Conservative stepwise pain medicine strategy with multi-disciplinary approach - Recommend healthy lifestyle strategies and compensatory methods as needed documented as of this encounter Visit Diagnoses Not on filedocumented in this encounter Care Teams Subcontracts Manager Relationship Specialty Start Date End Date Figueroa Bonilla MD [address] [place] [address] PCP - General Family Practice 11/09/18 08/23/20 No, Physician PCP - General 08/24/20 05/20/22 Michelle Pritchett MD PCP - General Family Practice 05/21/22 Figueroa Bonilla MD [address] [place] [address] 11/09/18 Anna Liu DPT [address] [place] [address] Physical Therapist Physical Therapy 03/04/19 08/04/19 Maddy Land, TIA Pre Coordinator Cardiology 04/23/22 Myra Camargo MD Surgeon Vascular Surgery 06/05/22 documented as of this encounter
--- OUTSIDE RECORDS SUMMARY | 2025-03-15 14:03 | XMS_ITS | Clinical Summary ---
Author Organization [employer] [place] Address [address] [place] [address] Care Team Providers Care Conditioning Machine Operator Name Role Phone Michelle Pritchett MD Primary Care Provider Allergies Active Allergy Reactions Criticality Noted Date Comments Adhesive Rash Medium 06/26/2021 Medications acetaminophen (TYLENOL) 500 mg tablet Take 1,000 mg by mouth. Active aspirin (ECOTRIN EC) 81 mg Tablet, Delayed Release (E.C.) Take 81 mg by mouth daily. Active furosemide (LASIX) 40 mg tablet Take 1 tablet by mouth twice daily 01/16/2021 Active gabapentin (NEURONTIN) 300 mg capsule TAKE 3 CAPSULES BY MOUTH THREE TIMES DAILY 01/22/2021 Active CARVEDILOL ORAL Take by mouth. Active OMEPRAZOLE MAGNESIUM ORAL Take by mouth. Active atorvastatin calcium (ATORVASTATIN ORAL) Take by mouth. Active omeprazole (PriLOSEC) 40 mg Capsule, Delayed Release(E.C.) 09/30/2021 Activ e atorvastatin (LIPITOR) 80 mg tablet 10/21/2021 Active carvediloL (COREG) 25 mg tablet 10/21/2021 Active lisinopriL 10 mg tablet Take 10 mg by mouth 2 times daily. Active cholecalciferol 1,250 mcg (50,000 unit) Capsule 08/19/2022 Active MULTIVITAMIN WITH IRON ORAL Take by mouth daily. Pt. doesn't recall dose Active Active Problems Problem Noted Date Diagnosed Date Neurogenic claudication due to lumbar spinal jayme nosis 06/26/2021 Other spondylosis with radiculopathy, lumbar reg ion 06/26/2021 Exogenous obesity 06/26/2021 Encounters Date Type Department Care Team Description 02/28/2025 8:25 AM CDT - 02/28/2025 11:59 PM CDT Hospital Encounter [facility] [address] [address] Martin Ang MD Discharge Disposition: Home or Self Care 02/28/2025 7:31 AM CDT - 02/28/2025 11:59 PM CDT Hospital Encounter [facility] [address] [address] Martin Ang MD Discharge Disposition: Home or Self Care 02/23/2025 Telephone [facility] [address] [address] Yolanda Leggett RN RFA PRE PROCEDURE CALL 02/20/2025 9:30 AM CDT Office Visit [facility] [address] [address] Martin Ang MD Lumbar spondylosis (Primary Dx) 02/20/2025 Prep for Surgery [facility] [address] [address] Nicholas Chaidez Lumbar spondylosis (Primary Dx); Lumbar radiculopathy 02/15/2025 Telephone [facility] [address] [address] Martin Ang MD Upcoming injection 02/07/2025 Prep for Surgery [facility] [address] [address] Janessa Porter PCA Lumbar spondylosis (Primary Dx) 02/01/2025 Telephone [facility] [address] [address] Martin Ang MD Wants to schedule repeat RFA; Schedule REpeat RFA 01/24/2025 External Device Data [facility] ABSTRACTION Provider, Abstract from Last 3 Months Social History Tobacco Use Types Packs/Day Years Used Date Smoking Tobacco: Never Tobacco Cessation:Counseling Given: Not Answered Sex and Gender Information Value Date Recorded Sex Assigned at Not on file Legal Sex Male 10:13 AM CDT Gender Identity Not on file Sexual Orientation Not on file Last Filed Vital Signs Vital Sign Reading Time Taken Comments Blood Pressure 112/73 02/28/2025 8:55 AM CDT Pulse 65 02/28/2025 8:55 AM CDT Temperature 36.9 C (98.5 F) 07/31/2021 1:54 PM EMPLOYMENT LEGAL ASSISTANT Respiratory Rate 16 02/28/2025 8:55 AM CDT Oxygen Saturation 100% 02/28/2025 8:55 AM CDT Inhaled Oxygen Concentration - - Weight 113.4 kg (250 lb) 02/20/2025 9:24 AM CDT Height 177.8 cm (5' 10) 09/06/2024 12:21 PM EMPLOYMENT LEGAL ASSISTANT Body Mass Index 35.87 09/06/2024 12:21 PM EMPLOYMENT LEGAL ASSISTANT Plan of Treatment Upcoming Encounters Date Type Department Care Team (Late st Contact Info) Description 04/05/2025 1:45 PM CDT Appointment [facility] [id number] [place] [address] Health Maintenance Due Date Last Done Comments Pre-Diabetes and Diabetes Screening 1970 HEPATITIS B VACCINES (1 of 3 - 19+ 3-dose series) 02/02/1987 COLORECTAL SCREENING 02/02/2013 Colorectal Cancer Screening 02/02/2013 FIT-DNA Q 3 years 02/02/2013 FIT/FOBT Q 1 year 02/02/2013 Flex Sig/CT Colonography Q 5 years 02/02/2013 ZOSTER VACCINE (1 of 2) 02/02/2018 INFLUENZA VACCINE (#1) 2025 2, 06/19/2017, 05/15/2016, Additional history exists DTAP/TDAP/TD VACCINES (2 - T d or Tdap) 09/12/2031 09/12/2021 Procedures Procedure Name Priority Date/Time Associated Diagnosis Comments XR FLUORO NEEDLE GUIDANCE SPINE Routine 02/28/2025 8:43 AM CDT from Last 3 Months Results * XR FLUORO NEEDLE GUIDANCE SPINE (02/28/2025 8:43 AM CDT) Narrative [facility] - 02/28/2025 8:43 AM CDT Order information only. Exam was auto-finalized. us Martin Ang MD DIAGNOSTIC IMAGING ORDERABLES F inal Result ZOË BROWN# [id number] [place] [address] from Last 3 Months Insurance MEDICARE PART A AND B AET[employer] CHOICE POS II Care Teams Conditioning Machine Operator Relationship Specialty Start Date End Date Michelle Pritchett MD [address] [place] [address] PCP - General Family Practice 08/19/21
--- OUTSIDE RECORDS SUMMARY | 2025-03-15 14:03 | XMS_ITS | Encounter Summary ---
Author Organization [facility] Address [address] [place] [address] Phone Care Team Providers Care Cutting Machine Fixer Name Role Phone Serna, Audi Primary Care Provider [phone] Unknown, Yanci Primary Care Provider Unavail able SernaAudi Primary Care Provider [phone] Unknown, Notinfdarin Primary Care Provider Unavail able Figueroa Bonilla MD Primary Care Provider [phone]- [phone] Figueroa Bonilla MD Primary Care Provider + [phone] Figueroa Bonilla MD Unavailable [phone] Anna Liu DPT Unavailable No, Physician Primary Care Provider [phone] Maddy Land RN Unavailable Unavaila Michelle Serrato MD Primary Care Provider Myra Camargo MD Unavailable [phone] Encounter Details Date Type Department Care Team (Latest Contact Info) Description 05/20/2017 Orders Only [facility] CONVERSION Scanning, Provider Social History Tobacco Use Types Packs/Day Years Used Date Smoking Tobacco: Never Assessed Sex and Gender Information Value Date Recorded Sex Assigned at Not on file Legal Sex Male 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 Gender Identity Not on file Sexual Orientation Not on file documented as of this encounter Plan of Treatment Not on file documented as of this encounter Procedures Procedure Name Priority Date/Time Associated Diagnosis Comments VASCULAR LABORATORY REPORT 05/20/2017 10:03 PM CDT VASCULAR LABORATORY REPORT 05/20/2017 10:03 PM CDT VASCULAR LABORATORY REPORT 05/20/2017 10:03 PM CDT documented in this encounter Results * VASCULAR LABORATORY REPORT (05/20/2017 10:03 PM CDT) Anatomical Region Laterality Modality Ultrasound us Provider Scanning CV VASCULAR PROCEDURES Final R esult * VASCULAR LABORATORY REPORT (05/20/2017 10:03 PM CDT) Anatomical Region Laterality Modality Ultrasound us Provider Scanning CV VASCULAR PROCEDURES Final R esult * VASCULAR LABORATORY REPORT (05/20/2017 10:03 PM CDT) Anatomical Region Laterality Modality Ultrasound us Provider Scanning CV VASCULAR PROCEDURES Final R esult documented in this encounter Visit Diagnoses Not on filedocumented in this encounter Care Teams Cutting Machine Fixer Relationship Specialty Start Date End Date Audi Serna [address] [phone] PCP - General 12/12/16 06/02/17 Unknown, Notinfile PCP - General 06/03/17 06/07/17 Audi Serna [address] [address] PCP - General 06/08/17 11/30/17 Unknown, Notinfile PCP - General 12/01/17 03/12/18 Figueroa Bonilla MD [address] [place] [address] PCP - General 03/13/18 11/08/18 Figueroa Bonilla MD [address] [place] [address] PCP - General Family Practice 11/09/18 08/23/20 No, Physician PCP - General 08/24/20 05/20/22 Michelle Pritchett MD PCP - General Family Practice 05/21/22 Figueroa Bonilla MD [address] [place] [address] 11/09/18 Anna Liu DPT [address] [place] [address] Physical Therapist Physical Therapy 03/04/19 08/04/19 Maddy Land RN Pre Coordinator Cardiology 04/23/22 Myra Camargo MD Surgeon Vascular Surgery 06/05/22 documented as of this encounter
--- OUTSIDE RECORDS SUMMARY | 2025-03-15 14:03 | XMS_ITS | Encounter Summary ---
Author Organization [facility] Address [address] [place] [address] Phone Care Team Providers Care Chief Port Director Name Role Phone Serna, Audi Primary Care Provider [phone] Unknown, Yanci Primary Care Provider Unavail able SernaAudi Primary Care Provider [phone] Unknown, Letynfdarin Primary Care Provider Unavail able Figueroa Bonilla MD Primary Care Provider [phone] Figueroa Bonilla MD Primary Care Provider + [phone] Figueroa Bonilla MD Unavailable [phone] Anna Liu DPT Unavailable No, Physician Primary Care Provider [phone] Maddy Land RN Unavailable Unavaila Michelle Serrato MD Primary Care Provider Myra Camargo MD Unavailable [phone] Encounter Details Date Type Department Care Team (Late st Contact Info) Description 10/01/2016 Orders Only [facility] ProviderPerez MD [address] [place] [address] Social History Tobacco Use Types Packs/Day Years Used Date Smoking Tobacco: Never Assessed Sex and Gender Information Value Date Recorded Sex Assigned at Not on file Legal Sex Male 6:22 AM DIRECTOR CASE Gender Identity Not on file Sexual Orientation Not on file documented as of this encounter Plan of Treatment Not on file documented as of this encounter Procedures Procedure Name Priority Date/Time Associated Diagnosis Comments CARDIOLOGY REPORT 10/01/2016 documented in this encounter Results * CARDIOLOGY REPORT (10/01/2016) Anatomical Region Laterality Modality Other Narrative 10/01/2016 Ordered by an unspecified provider. us Historical Provider [facility] Final Result documented in this encounter Visit Diagnoses Not on filedocumented in this encounter Care Teams Chief Port Director Relationship Specialty Start Date End Date Audi Serna [address] [phone] PCP - General 12/12/16 06/02/17 Unknown, Notinfile PCP - General 06/03/17 06/07/17 Audi Serna [address] [phone] PCP - General 06/08/17 11/30/17 Unknown, Notinfile PCP - General 12/01/17 03/12/18 Figueroa Bonilla MD [address] [place] [address] PCP - General 03/13/18 11/08/18 Figueroa Bonilla MD [address] [place] [address] PCP - General Family Practice 11/09/18 08/23/20 No, Physician PCP - General 08/24/20 05/20/22 Michelle Pritchett MD PCP - General Family Practice 05/21/22 Figueroa Bonilla MD [address] [place] [address] 11/09/18 Anna Liu, NORAT [address] [place] [address] Physical Therapist Physical Therapy 03/04/19 08/04/19 Maddy Land, TIA Pre Coordinator Cardiology 04/23/22 Myra Camargo MD Surgeon Vascular Surgery 06/05/22 documented as of this encounter
--- OUTSIDE RECORDS SUMMARY | 2025-03-15 14:03 | XMS_ITS | Encounter Summary ---
Author Organization [employer] Address [address] [place] [address] Care Team Providers Care Animal Physiology Teacher Name Role Phone Michelle Pritchett MD Primary Care Provider Encounter Details Date Type Department Care Team (Late st Contact Info) Description 06/08/2023 Telephone [facility] [address] [place] [address] Chayo Huerta RN Social History Tobacco Use Types Packs/Day Years Used Date Smoking Tobacco: Never Sex and Gender Information Value Date Recorded Sex Assigned at Not on file Legal Sex Male 10:13 AM CDT Gender Identity Not on file Sexual Orientation Not on file documented as of this encounter Miscellaneous Notes * Telephone Encounter - Chayo Huerta RN - 06/08/2023 1:02 PM CORKING MACHINE OPERATOR Call 06/08/2023 1:03 PM Name: Vega Pinedo Jr. Call placed major Ferrari answered the phone. This RN identified self and the purpose of the call was to check on how the patient is doing following L4-5 PALMER injection. Have you been experiencing any fever, chills, redness or swelling at the injection site? no Any other new concerns? no How would you rate your pain relief at this time? Greater than 80% pain relief Pain Rating is: 2/10 at it's best 8/10 at it's worst 3/10 on average (0 = no pain and 10 = worst pain imaginable) Did you have increased level of function, if yes please explain: now able to do most everything with minimal to no pain Any improvement in quality of life? yes if yes please explain: Improved quality of life Have you been started on antibiotics for any reason? no Based on these results, You may have this procedure repeated in 3 months Verified with patient contact information for Dr. Ang was shared. Instructed to contact us with any questions or concerns at [phone] option 6 ING MACHINE OPERATOR documented in this encounter Plan of Treatment Upcoming Encounters Date Type Department Care Team (Late st Contact Info) Description 04/05/2025 1:45 PM CDT Appointment [facility] [address] [place] [address] documented as of this encounter Visit Diagnoses Not on filedocumented in this encounter Care Teams Animal Physiology Teacher Relationship Specialty Start Date End Date Michelle Pritchett MD [address] [place] [address] PCP - General Family Practice 08/19/21 documented as of this encounter
--- OUTSIDE RECORDS SUMMARY | 2025-03-15 14:03 | XMS_ITS | Encounter Summary ---
Author Organization [facility] [employer] [facility] Address [address] [place] [address] Phone Care Team Providers Care Process Safety Manager Name Role Phone SernaAudi de santiago Primary Care Provider [phone] Unknown, Notinfile Primary Care Provider Unavail able Figueroa Bonilla MD Primary Care Provider [phone] Figueroa Bonilla MD Primary Care Provider [phone] Figueroa Bonilla MD Unavailable [phone] Anna Liu DPT Unavailable No, Physician Primary Care Provider [phone] Maddy Land RN Unavailable Unavaila Michelle Serrato MD Primary Care Provider Myra Camargo MD Unavailable [phone] Encounter Details Date Type Department Care Team (Late st Contact Info) Description 10/06/2017 Orders Only [facility]IN[facility] Provider, MD [facility] [place] [address] Social History Tobacco Use Types Packs/Day Years Used Date Smoking Tobacco: Never Sex and Gender Information Value Date Recorded Sex Assigned at Not on file Legal Sex Male 6:22 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 us Historical Provider [facility] Final Result documented in this encounter Visit Diagnoses Not on filedocumented in this encounter Care Teams Process Safety Manager Relationship Specialty Start Date End Date Serna, Robert [address] [facility] [address] [place] [address] PCP - General 06/08/17 11/30/17 Unknown, Notinfile PCP - General 12/01/17 03/12/18 Figueroa Bonilla MD [address] [place] [address] PCP - General 03/13/18 11/08/18 Figueroa Bonilla MD [address] [place] [address] PCP - General Family Practice 11/09/18 08/23/20 No, Physician PCP - General 08/24/20 05/20/22 Michelle Pritchett MD PCP - General Family Practice 05/21/22 Figueroa Bonilla MD [address] [place] [address] 11/09/18 Anna Liu DPT [address] [place] [address] Physical Therapist Physical Therapy 03/04/19 08/04/19 Maddy Land, TIA Pre Coordinator Cardiology 04/23/22 Myra Camargo MD Surgeon Vascular Surgery 06/05/22 documented as of this encounter
--- OUTSIDE RECORDS SUMMARY | 2025-03-15 14:03 | XMS_ITS | Clinical Summary ---
Author Organization [facility] 2 Address [address] [place] [address] Care Team Providers Care Assistant Education Director Name Role Phone Figueroa Bonilla MD Unavailable [phone] Maddy Land RN Unavailable Unavaila Michelle Serrato MD Primary Care Provider Myra Camargo MD Unavailable [phone] Allergies Active Allergy Reactions Criticality Noted Date Comments Adhesive Rash,Redness Medium Paper Tape is okay Medications aspirin 81 mg tablet Take 1 tablet (81 mg total) by mouth daily Active atorvastatin (LIPITOR) 80 mg tablet Take 1 tablet (80 mg total) by mouth daily 8 Active carvedilol (COREG) 25 mg tablet Take 0.5 tablets (12.5 mg total) by mouth 2 (two) times a day with meals 8 Active acetaminophen (TYLENOL) 500 mg tablet Take 2 tablets (1,000 mg total) by mouth every 4 (four) hours as needed Active lisinopriL (PRINIVIL,ZESTR IL) 10 mg tablet Take 1 tablet by mouth twice daily 180 tablet 2 1 06/06/20 26 Active Additional Information Patient taking differently: 20 mg, Reported on 06/02/2024 furosemide (LASIX) 40 mg tablet Take 1 tablet by mouth twice daily 180 tablet 1 1 Active gabapentin (NEURONTIN) 300 mg capsule TAKE 3 CAPSULES BY MOUTH THREE TIMES DAILY 270 capsule 1 Active calcium carbonate-vitam in D3 1,250mg (500mg elemental) - 5 mcg (200 units) per tablet Take 1 tablet by mouth 2 (two) times a day with meals Active cholecalciferol (VITAMIN D-3) 50,000 unit capsule 4 Active Active Problems Problem Noted Date Diagnosed Date 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 Possibly iatrogenic in setting of overdiuresis and home antihypertensive regimen. Somewhat responsive to fluid challenge with SBPs now in 90s-100s. However, also consider cardiogenic source (though patient appears well compensated on exam). No localizing infectious symptoms. Does have evidence of end organ damage with acute on chronic renal failure. Trop negative, EKG AV paced. Lactate 2.0 -received 1L of fluids at OSH, will trial additional 500cc LR bolus SHAUNA on CPAP 03/14/2018 Assessment & Plan (03/16/2018 8:46 AM CDT): -cont CPAP Assessment & Plan (03/15/2018 3:00 PM CDT): -cont CPAP Assessment & Plan (03/14/2018 12:06 AM CDT): Unclear history of compliance with CPAP -will place respiratory consult for CPAP Depression 03/14/2018 Assessment & Plan (03/15/2018 3:00 PM CDT): -cont lexapro Assessment & Plan (03/14/2018 12:06 AM CDT): Recently started on lexapro 10mg qd, will continue. Denies any SI/HI. Morbid obesity 03/14/2018 Assessment & Plan (03/14/2018 12:07 AM CDT): BMI 47.16. 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 -holding all antihypertensives in setting of hypotension, restart as appropriate Syncope 03/13/2018 Assessment & Plan (03/15/2018 2:54 PM CDT): -2 month history of dizziness/lightheadedness with at least 4 episodes of syncope possibly due to overdiuresis -orthostatic vitals negative -device interrogation with only 1 episode of NSVT which did not correlate to his syncope -TTE pending -holding diuretics Assessment & Plan (03/13/2018 11:53 PM CDT): Reporting 2 month history of dizziness/lightheadedness, with at least 4 episodes of LOC. States that symptoms typically associated with positional changes, but have occurred at rest as well. Denies any chest pain or palpitations prior to the episodes. After syncope, reports confusion and bilateral UE numbness and pain but no witnessed seizure-like activity. Denies and device shocks, recently interrogated in 10/2017 without any issues. Hypotensive with SBPs in 70s at OSH which slightly improved with fluids. Possibly overdiuresis resulting in orthostatic hypotension, but also consider other cardiogenic or neurologic causes. -device interrogated with only 1 episode of NSVT and PMT -obtain orthostatic VS -TTE -carotid U/S Acute kidney injury superimposed on chronic kidn ey disease 03/13/2018 Assessment & Plan (03/16/2018 8:44 AM CDT): -LEDA on CKD admitted with creatine 4.43 Improved creatine today down to 1.93 On admission held lisinopril, Holding furosemide Renal ultrasound unremarkable as shows normal kidneys and no hydronephrosis Continue to monitor Assessment & Plan (03/15/2018 2:54 PM CDT): -LEDA on CKD -Cr improving, 2.14 today -cont holding lasix, lisinopril, and spironolactone -strict I/Os, avoid nephrotoxins, renally dose medications -renal u/s unremarkable Assessment & Plan (03/14/2018 1:02 AM CDT): Patient reportedly has been told that he has CKD3, 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 Cr 4.43 on admission, with our last prior value 1.03 ~2 years ago. States that his kidney function has been worsening and has been ongoing discussion with grab setter and exceptional children's teacher regarding diuretic regimen. Denies any notable decrease in UOP. -obtain records from OSH exceptional children's teacher regarding Cr trend and workup -does not appear volume overloaded on exam, questionable orthostasis at home; will trial fluid challenge and monitor BMP for response -LEDA workup with UA, urine lytes, renal U/S -no urgent indication for dialysis (K 5.0, HCO3 22, not volume overloaded); consider renal c/s if not improving or if becomes anuric -strict I/Os, avoid nephrotoxins, renally dose medications Nonischemic cardiomyopathy 03/13/2018 Overview (03/13/2018): [facility] (03/2015) at [place]: no significant CAD Assessment & Plan (03/16/2018 8:46 AM CDT): -recovered EF (50% 12/2015 from 20-25%) -appears euvolemic on exam Decrease carvedilol from home dose to 12.5 mg bid ( home dose 25 mg bid) Holding lisinopril, spirolactone and furosemide . On admission felt to be overdiuresed and contributing to symptoms and LEDA Continue to monitor Daily weight Echo today Assessment & Plan (03/15/2018 2:47 PM CDT): -recovered EF (50% 12/2015 from 20-25%) -appears euvolemic on exam -resume carvedilol 12.5mg BID (home dose 25mg BID) -cont holding lisinopril, lasix, and spironolactone in setting of LEDA -cont asa, statin -TTE pending Assessment & Plan (03/14/2018 12:04 AM CDT): Followed by Dr. Stovall. Prior EF 20-25%, though most recent TTE from 12/2015 with EF 50%, pseudonormal diastolic fxn, septal HK, mid septal akinesis/thinned segment. S/P [employer]T [employer]ER-D (08/2015). NYHA Class II symptoms. On coreg 25 BID, lisinopril 10 BID, aldactone 25 qd and Lasix 40 BID at home. Appears well compensated on exam, NT pro BNP 114 at OSH, CXR with cardiomegaly but no notable edema. -given that patient appears well compensated on exam, will hold diuresis -holding coreg, lisinopril, aldactone and lasix given hypotension -continue ASA, atorvastatin Popliteal artery aneurysm, bilateral 03/13/2018 Assessment & Plan (03/14/2018 12:01 AM CDT): Followed by V[facility] at [facility]. History of bilateral popliteal artery aneursyms s/p bilateral popliteal artery bypass surgery. Denies any LE pain at this time. 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 Left bundle branch block (LBBB) 08/16/2015 Aneurysm of popliteal artery 07/02/2015 Chronic systolic heart failure 05/18/2015 Acute combined systolic and diastolic heart fail ure 04/23/2015 PAD (peripheral artery disease) 04/23/2015 Cardiomyopathy 04/23/2015 Encounters Date Type Department Care Team Description 12/19/2024 Orders Only [facility] Cardiology [address] [place] [address] [place] [address] Dain Miller MD from Last 3 Months Immunizations Immunization Administration Dates Next Due Influenza, Quadrivalent, Spl it, Preservative Free, Intramuscular 07/09/2022,06/19/2017 Influenza, Trivalent, Preservative Free, Intramu scular 05/15/2016,05/17/2015 Tdap 09/12/2021 Surgical History Surgery Date Site/Laterality Comments FIBRIN SHEATH REMOVAL 03/15/2015 N/A FIBRIN SHEATH REMOVAL 03/14/2015 N/A INSERT / REPLACE / REMOVE PACEMAKER CARDIAC DEFIBRILLATOR PLACEMENT FEMORAL BYPASS Bilateral SHOULDER SURGERY TONSILLECTOMY Medical History Medical History Date Comments Hypertension HLD (hyperlipidemia) Popliteal artery aneurysm, bilateral s/p bilateral artery bypass surgery Sleep apnea On CPAP Morbid obesity (HCC) CHF (congestive heart failure) (HCC) NICM with recovered EF (50% in 12/2015), [facility] with no significant CAD at [place] 03/2015; s/p BELT DRESSER-D (08/2015) as part of [employer]IG[employer] trial CKD (chronic kidney disease) Rep ortedly CKD3, unknown baseline, follows with [facility] exceptional children's teacher Nonischemic cardiomyopathy (HCC) 03/13/2018 [facility] (03/2015) at [place]: no significant CAD Anxiety Depression Memory loss Hiatal hernia DVT (deep venous thrombosis) Breathing difficulty GI problem Joint pain Low back pain Arthritis Obesity hypoventilation syndrome (HCC) Family History Medical History Relation Name Comments Heart attack Father Family history of heart attack - (Added by TW Conv) Hypertension Father Family history of hypertension - (Added by TW Conv) Diabetes Other Heart disease Other Hyperlipidemia Other Hypertension Other Hypertension Sister Family history of hypertension - (Added by TW Conv) Relation Name Status Comments Father Other Sister Social History Tobacco Use Types Packs/Day Years Used Date Smoking Tobacco: Never Passive Smoke Exposure: Never Smokeless Tobacco: Never Tobacco Cessation:Counseling Given: Not Answered Comments:very intermittent in past Alcohol Use Standard Drinks/Week Comments No 0 (1 standard drink = 0.6 oz pur e alcohol) AUDIT-C Answer Date Recorded Q1: How often do you have a drink containing alcohol? Never 03/22/2024 Q2: How many drinks containi ng alcohol do you have on a typical day when you are drinking? Patient does not drink Q3: How often do you have si x or more drinks on one occasion? 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 Gender Identity Not on file Sexual Orientation Not on file Obstetrics History Last Filed Vital Signs Vital Sign Reading Time Taken Comments Blood Pressure 106/72 06/02/2024 8:24 AM CDT Pulse 78 06/02/2024 8:24 AM CDT Temperature 36.8 C (98.2 F) 06/02/2024 8:24 AM CDT Respiratory Rate 16 06/02/2024 8:24 AM CDT Oxygen Saturation 98% 06/02/2024 8:24 AM CDT Inhaled Oxygen Concentration - - Weight 109.6 kg (241 lb 9.6 oz) 024 8:24 AM CDT Height 177.8 cm (5' 10) 06/01/2024 3:39 PM CDT Body Mass Index 34.67 06/01/2024 3:39 PM CDT Plan of Treatment Health Maintenance Due Date Last Done Comments Colon Cancer Screening-Colonoscopy 1968 Depression Screening 1968 Prostate Cancer Screening-PSA 1968 Hepatitis B Screening 02/02/1986 Regular Well Visit/Exam 18-64 02/02/1986 Pneumococcal vaccine <65 (1 of 2 - PCV) 02/02/1987 Zoster Vaccine (1 of 2) 02/02/1987 Covid-19 Vaccine (5 - 2023-2 5 season) 2024 07/09/2022, 07/14/2021, 12/06/2020, Additional history exists Influenza Vaccine (#1) 2025 , 06/19/2017, 05/15/2016, Additional history exists DTaP/Tdap/Td Vaccine (2 - Td or Tdap) 09/12/2031 09/12/2021 Hepatitis C Screening Completed 03/19/2015, 015 Goals Goal Patient Goal Type Associated Problems Recent Progress Patient-Stated? Author CCM Chronic Pain Care Plan Chronic Care Management Improving( 2:35 PM PHYSICAL THERAPY TECHNICIAN) Briseyda Duenas RN Note: Problem: Chronic Pain Goals: 1. Minimize further functional decline 2. Maximize quality of life 3. Control pain Strategies: - Activity/exercise program recommendation - Conservative stepwise pain medicine strategy with multi-disciplinary approach - Recommend healthy lifestyle strategies and compensatory methods as needed Medical Devices Implanted Type Area Heavy Repairer Device Identifier Shelf Expiration Date Model / Serial / Lot Icd ICD Heart Procedures Procedure Name Priority Date/Time Associated Diagnosis Comments DEVICE CHECK - REMOTE Routine 12/19/2024 5:34 AM CDT SERUM HEPATITIS C AB Routine 03/19/2015 6:19 AM CDT from Last 3 Months or Most Recently Relevant to Health Maintenance Results * DEVICE CHECK - REMOTE (12/19/2024 5:34 AM CDT) Anatomical Region Laterality Modality Other 12/19/2024 5:34 AM CDT Narrative 12/19/2024 8:16 PM CDT Interpretation Summary: Battery and Leads (BL) Normal parameters noted on battery and lead(s) --- 8 months remaining (this is an estimate based on prior usage) Presenting Rhythm (NC) Atrial Pacing-BiVentricular Pacing (AP-BiVP) --- rate 60 Arrhythmic events (AE) Atrial High-Rate Episode(s) identified --- One non-sustained AT episode Transmission Information (TI) Device Summary Report Procedure Note Dain Miller MD - 12/19/2024 Interpretation Summary: Battery and Leads (BL) Normal parameters noted on battery and lead(s) --- 8 months remaining(this is an estimate based on prior usage) Presenting Rhythm (NC) Atrial Pacing-BiVentricular Pacing (AP-BiVP) --- rate 60 Arrhythmic events (AE) Atrial High-Rate Episode(s) identified --- One non-sustained AT episode Transmission Information (TI) Device Summary Report Dain Miller MD [facility] Final Result * Serum Hepatitis C ab (03/19/2015 6:19 AM CDT) HCV ab Negative NEG HISTORICAL RESULTS Serum 03/19/2015 6:19 AM CDT Narrative HISTORICAL RESULTS - 03/19/2015 8:08 AM CDT Interpretive Data If confirmation is required, call Laboratory Customer Service to request sample to be sent to [facility] for Hepatitis C Virus (HCV) RNA Detection and Quantitation by Real-Time Reverse Press Bucker-PCR (RT-PCR). Current interpretive data was last revised on 2011 Myra Camargo MD LAB BLOOD ORDERABLES Moon merino Result HISTORICAL RESULTS from Last 3 Months or Most Recently Relevant to Health Maintenance Insurance [facility] MEDICARE [facility] Advance Directives For more information, please contact: [phone] * Full Code (Latest Code Status on File) Date Activated Date Inactivated Comments 03/13/2018 6:25 PM 03/16/2018 6:51 PM Care Teams Assistant Education Director Relationship Specialty Start Date End Date Michelle Pritchett MD PCP - General Family Practice 05/21/22 Figueroa Bonilla MD [address] [place] [address] 11/09/18 Maddy Land, TIA Pre Coordinator Cardiology 04/23/22 Myra Camargo MD Surgeon Vascular Surgery 06/05/22
--- OUTSIDE RECORDS SUMMARY | 2025-03-15 14:03 | XMS_ITS | Encounter Summary ---
Author Organization [facility] [employer] [facility] Address [address] [place] [address] Phone Care Team Providers Care Software Firmware Engineer Name Role Phone SernaAudi de santiago Primary Care Provider [phone] Unknown, Notinfile Primary Care Provider Unavail able Figueroa Bonilla MD Primary Care Provider [phone] Figueroa Bonilla MD Primary Care Provider [phone] Figueroa Bonilla MD Unavailable [phone] Anna Liu DPT Unavailable No, Physician Primary Care Provider [phone] Maddy Land RN Unavailable Unavaila Michelle Serrato MD Primary Care Provider Myra Camargo MD Unavailable [phone] Encounter Details Date Type Department Care Team (Latest Contact Info) Description 11/23/2017 Orders Only [facility] CONVERSION Scanning, Provider Social History Tobacco Use Types Packs/Day Years Used Date Smoking Tobacco: Never Sex and Gender Information Value Date Recorded Sex Assigned at Not on file 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 Gender Identity Not on file Sexual Orientation Not on file documented as of this encounter Plan of Treatment Not on file documented as of this encounter Procedures Procedure Name Priority Date/Time Associated Diagnosis Comments VASCULAR LABORATORY REPORT 11/23/2017 3:57 PM CDT VASCULAR LABORATORY REPORT 11/23/2017 3:57 PM CDT VASCULAR LABORATORY REPORT 11/23/2017 3:57 PM CDT documented in this encounter Results * VASCULAR LABORATORY REPORT (11/23/2017 3:57 PM CDT) Anatomical Region Laterality Modality Ultrasound us Provider Scanning CV VASCULAR PROCEDURES Final R esult * VASCULAR LABORATORY REPORT (11/23/2017 3:57 PM CDT) Anatomical Region Laterality Modality Ultrasound us Provider Scanning CV VASCULAR PROCEDURES Final R esult * VASCULAR LABORATORY REPORT (11/23/2017 3:57 PM CDT) Anatomical Region Laterality Modality Ultrasound us Provider Scanning CV VASCULAR PROCEDURES Final R esult documented in this encounter Visit Diagnoses Not on filedocumented in this encounter Care Teams Software Firmware Engineer Relationship Specialty Start Date End Date Audi Serna [address] [id number] PCP - General 06/08/17 11/30/17 Unknown, Notinfile PCP - General 12/01/17 03/12/18 Figueroa Bonilla MD [address] [place] [address] PCP - General 03/13/18 11/08/18 Figueroa Bonilla MD [address] [place] [address] PCP - General Family Practice 11/09/18 08/23/20 No, Physician PCP - General 08/24/20 05/20/22 Michelle Pritchett MD PCP - General Family Practice 05/21/22 Figueroa Bonilla MD [address] [place] [address] 11/09/18 Anna Liu DPT [address] [place] [address] Physical Therapist Physical Therapy 03/04/19 08/04/19 Maddy Land, TIA Pre Coordinator Cardiology 04/23/22 Myra Camargo MD Surgeon Vascular Surgery 06/05/22 documented as of this encounter
== END 2025-03-15 14:00 | disposition home or self-care (01) ==
PROVIDERS: PCP Nurse Practitioner Family; Visit Provider Nurse Practitioner Family
DX: M19.012 Primary osteoarthritis, left shoulder (principal); M24.012 Loose body in left shoulder; M25.512 Pain in left shoulder
CPT/HCPCS: 73200